=== PATIENT | female | born 1935 | race Caucasian/White ===

== ENCOUNTER 2017-03-13 22:25 | Emergency (ER) | payer OTHER ==
[~2017-03-13] VITALS: Ht 165.1 cm; Wt 60.5 kg
[~2017-03-13 22:25] MED LIST: CALCTAB66 PO; HYDR50TA3 PO; LOSA1TAB38 PO; LPR25 PO; MULTTAB PO; POTA-327 PO; PRM/3 PO
[2017-03-13 22:30] VITALS: TEMP 36.8; Ht 165.1 cm; Wt 60.5 kg
[2017-03-13] MEDS ORDERED: ONDANSETRON INJ 2 MG/ML 2 ML VIAL IV STA (23:05)
[2017-03-13] MEDS ORDERED: SODIUM CHLORIDE 0.9% 500ML 500 ML IV STA (23:05)
[2017-03-13] MEDS ORDERED: DIAZEPAM INJ 5 MG/ML 2 ML CARP IV STA (23:05)
[2017-03-13] MEDS ORDERED: MECLIZINE HCL 25 MG TAB PO STA (23:05)
[2017-03-13] MEDS ORDERED: SODIUM CHLORIDE 0.9% 1000ML 1,000 ML IV SCH (23:05)
--- NOTE | 2017-03-13 23:10 | EMERGENCY ROOM VISIT NOTE ---
History Report prepared by Sima: Bartolo Cornelius Under the Supervision of: Dr. Magdy Alex M.D. First contact with patient: 22:54 Chief Complaint: DIZZY Stated Complaint: DIZZY SPELLS;SICK IN STOMACH History of Present Illness The patient is an 82 year old female who presents to the Emergency Room with complaints of persistent dizziness that started this morning. The patient notes that she woke up with the discomfort around 4 AM. The patient notes the discomfort is worse when she stands up and lays flat. She describes the discomfort as feeling like the room is spinning when she is laying down and like she is off-balance and lightheaded when she stands up. The patient notes that if she stays still, the room spinning gradually goes away. The patient also had two episodes of vomiting. She denies having any history of this sensation before today. Source of History: patient Onset: this morning Position: head Timing: other (persistent) Modifying Factors (Worsening): rest (lays down ), movement (stands up ) Associated Symptoms: + vomiting Note: Other associated symptoms: lightheaded Review of Systems See HPI for pertinent positives & negatives. A total of 10 systems reviewed and were otherwise negative. Past Medical & Surgical Medical Problems: (1) Hypertension (2) Skin problem Family History FH: cancer FH: hypertension FH: lung disease Heart disease Kidney stone Social History Smoking Status: Never Smoker Housing Status: lives alone Occupation Status: retired Current/Historical Medications Scheduled Amoxicillin (Amoxil), 500 MG PO TID Calcium Carbonate-Vitamin D (Calcium 500/Vitamin D), 1 TAB PO DAILY Hydrochlorothiazide (Hctz), 50 MG PO QAM Losartan Potassium (Cozaar), 100 MG PO DAILY Metoprolol Tartrate (Lopressor), 25 MG PO BID Multivitamins/Minerals (Mvi With Minerals), 1 TAB PO DAILY Potassium Chloride (Potassium Chloride Er), 10 MEQ PO BID Scheduled PRN Meclizine Hcl (Meclizine Hcl), 1 TAB PO TID PRN for Dizziness or Vertigo Allergies Coded Allergies: Atenolol (Verified Allergy, Unknown, UNKNOWN, 03/13/17) Cephalosporins (Verified Allergy, Unknown, UNKNOWN, 03/13/17) Uncoded Allergies: CALCIUM CANNEL BLOCKERS (Allergy, Severe, ARMS & LEGS GO NUMB, 05/29/13) Physical Exam Vital Signs Date Time Temp Pulse Resp B/P Pulse Ox O2 Delivery O2 Flow Rate FiO2 03/14/17 00:58 85 18 156/81 97 03/13/17 23:53 84 18 159/77 95 Room Air 03/13/17 23:25 98 Room Air 03/13/17 22:55 82 20 158/71 98 Room Air 03/13/17 22:41 82 03/13/17 22:30 36.8 90 20 189/84 97 Room Air Physical Exam GENERAL: Patient is a healthy-appearing well-nourished HEAD: Normocephalic atraumatic EYES: Ocular movements intact pupils equal and react to light OROPHARYNX mucous membranes are moist no exudates present no erythema or edema present NECK: Supple no nuchal rigidity CHEST: Good equal expansion LUNGS: Clear and equal to auscultation CARDIAC: Normal S1 and S2 ABDOMEN: Soft nontender no guarding BACK: No CVA tenderness EXTREMITIES: No pain upon palpation normal muscle strength in all groups no clubbing cyanosis or edema NEURO: Patient is following commands is answering questions appropriately. Alert and oriented x3 Cranial Nerves 2-12 grossly intact. Unable to tolerate Nishant Hallpike Maneuver. Medical Decision & Procedures ER Provider Diagnostic Interpretation: Radiology results as stated below per my review and radiologist interpretation: CT HEAD: No intracranial hemorrhage or acute cortical infarct. Involutional changes and small vessel disease. One View Chest X-Ray was interpreted by me: No evidence of pneumonia, congestion, or pneumothorax. Laboratory Results 03/13/17 23:07 Red Blood Count 4.54, Mean Corpuscular Volume 80.6, Mean Corpuscular Hemoglobin 29.7, Mean Corpuscular Hemoglobin Concent 36.9, Mean Platelet Volume 9.0, Neutrophils (%) (Auto) 71.2, Lymphocytes (%) (Auto) 18.3, Monocytes (%) (Auto) 8.6, Eosinophils (%) (Auto) 1.3, Basophils (%) (Auto) 0.3, Neutrophils # (Auto) 7.42, Lymphocytes # (Auto) 1.90, Monocytes # (Auto) 0.89, Eosinophils # (Auto) 0.13, Basophils # (Auto) 0.03 03/13/17 23:07 Test 03/13/17 23:07 03/13/17 23:16 03/13/17 23:25 03/14/17 00:44 White Blood Count 10.40 K/uL (4.8-10.8) Red Blood Count 4.54 M/uL (4.2-5.4) Hemoglobin 13.5 g/dL (12.0-16.0) Hematocrit 36.6 % (37-47) Mean Corpuscular Volume 80.6 fL (80-100) Mean Corpuscular Hemoglobin 29.7 pg (25-34) Mean Corpuscular Hemoglobin Concent 36.9 g/dl (32-36) Platelet Count 315 K/uL (130-400) Mean Platelet Volume 9.0 fL (7.4-10.4) Neutrophils (%) (Auto) 71.2 % Lymphocytes (%) (Auto) 18.3 % Monocytes (%) (Auto) 8.6 % Eosinophils (%) (Auto) 1.3 % Basophils (%) (Auto) 0.3 % Neutrophils # (Auto) 7.42 K/uL (1.4-6.5) Lymphocytes # (Auto) 1.90 K/uL (1.2-3.4) Monocytes # (Auto) 0.89 K/uL (0.11-0.59) Eosinophils # (Auto) 0.13 K/uL (0-0.5) Basophils # (Auto) 0.03 K/uL (0-0.2) RDW Standard Deviation 39.7 fL (36.4-46.3) RDW Coefficient of Variation 13.4 % (11.5-14.5) Immature Granulocyte % (Auto) 0.3 % Immature Granulocyte # (Auto) 0.03 K/uL (0.00-0.02) Prothrombin Time 10.3 SECONDS (9.0-12.0) Prothromb Time International Ratio 1.0 (0.9-1.1) Activated Partial Thromboplast Time 24.3 SECONDS (21.0-31.0) Partial Thromboplastin Ratio 0.9 Anion Gap 14.0 mmol/L (3-11) Est Creatinine Clear Calc Drug Dose 34.3 ml/min Estimated GFR () 53.4 Estimated GFR (Non- 46.1 BUN/Creatinine Ratio 14.0 (10-20) Calcium Level 9.7 mg/dl (8.5-10.1) Total Creatine Kinase 151 U/L (26-192) Creatine Kinase MB 1.2 ng/ml (0.5-3.6) Creatine Kinase MB Ratio 0.8 (0-3.0) Troponin I < 0.015 ng/ml (0-0.045) Bedside Glucose 156 mg/dl (70-90) Bedside Prothrombin Time INR 0.9 (0.9-1.1) Urine Color YELLOW Urine Appearance TURBID (CLEAR) Urine pH 7.0 (4.5-7.5) Urine Specific [place] 1.013 (1.000-1.030) Urine Protein NEG (NEG) Urine Glucose (UA) NEG (NEG) Urine Ketones TRACE (NEG) Urine Occult Blood 1+ (NEG) Urine Nitrite NEG (NEG) Urine Bilirubin NEG (NEG) Urine Urobilinogen NEG (NEG) Urine Leukocyte Esterase LARGE (NEG) Urine WBC (Auto) >30 /hpf (0-5) Urine RBC (Auto) 5-10 /hpf (0-4) Urine Hyaline Casts (Auto) 5-10 /lpf (0-5) Urine Epithelial Cells (Auto) >30 /lpf (0-5) Urine Bacteria (Auto) 4+ (NEG) Labs reviewed by ED physician. Medications Administered Medications (Trade) Dose Ordered Sig/Heather Route Start Time Stop Time Status Last Admin Dose Admin Meclizine HCl (Antivert Tab) 25 mg NOW STAT PO 03/13/17 23:05 03/13/17 23:08 DC 03/13/17 23:47 25 MG Diazepam (Valium Inj) 2.5 mg NOW STAT IV 03/13/17 23:05 03/13/17 23:08 DC 03/13/17 23:47 2.5 MG Ondansetron HCl 4 mg 4 mg NOW STAT IV 03/13/17 23:05 03/13/17 23:08 DC 03/13/17 23:47 4 MG Sodium Chloride (Nss 500ml) 500 ml @ 999 mls/hr Q31M STAT IV 03/13/17 23:05 03/13/17 23:35 DC 03/13/17 23:47 999 MLS/HR Potassium Chloride (Gemini Ciel Elix) 40 meq NOW STAT PO 03/13/17 23:46 03/13/17 23:47 DC 03/14/17 00:00 40 MEQ Amoxicillin (Amoxil Cap) 500 mg NOW STAT PO 03/14/17 00:44 4/18/17 00:45 DC 03/14/17 00:55 500 MG Sodium Chloride ([place] Nasal Hiko) 2 sprays NOW STAT NA 03/14/17 00:44 03/14/17 00:45 DC 03/14/17 00:55 2 SPRAYS ECG Indication: other Rate (beats per minute): 82 Rhythm: normal sinus Findings: no acute ischemic change, no ectopy ED Course 2253: Past medical records reviewed. The patient was evaluated in room C10. A complete history and physical examination was performed. 2305: Ordered NSS 500 ml @ 999 mls/hr IV, Zofran Inj 4 mg IV, Valium Inj 2.5 mg IV, Antivert Tab 25 mg PO, NSS 1000 ml @ 50 mls/hr IV. 2346: Ordered Potassium Chloride 40 meq PO. 0023: At this time, I reevaluated the patient and she was feeling better. She did a walking trial that went well. 0044: Ordered Sodium Chloride 2 sprays NA, Amoxicillin 500 mg PO. 0052: Upon reexamination the patient is resting comfortably. I discussed results and treatment plan with the patient. She verbalizes agreement and understanding. The patient is ready for discharge. Medical Decision Differential diagnosis: Etiologies such as benign positional vertigo, dehydration, hypovolemia, anemia, tumor, infection, hypoglycemia, electrolyte abnormalities, cardiac sources, intracerebral event, toxicologic, neurologic, as well as others were entertained. This is an 82-year-old female who presents emergency department complaining of dizziness whenever she moves her head lays backwards or sits up. The dizziness fatigues with time. The dizziness started approximately 4 AM this morning. As his symptoms have been ongoing for this long I would expect a stroke to show up on CAT scan. As such the patient's CAT scan is normal. The patient was given Valium as well as meclizine and Zofran in the emergency department repeat examination revealed much improvement the patient's symptoms. The patient was able to turn her head without any symptoms based on these issues I believe the patient can be safely discharged home. She was ambulate a by nursing staff prior to leaving. The patient has been having sinusitis-like symptoms as well therefore she was placed on amoxicillin and given [place] nasal spray. I encouraged follow-up with ear nose and throat. Impression Primary Impression: BPV (benign positional vertigo) Additional Impression: Sinusitis Scribe Attestation The scribe's documentation has been prepared under my direction and personally reviewed by me in its entirety. I confirm that the note above accurately reflects all work, treatment, procedures, and medical decision making performed by me. Departure Information Dispostion Home / Self-Care Prescriptions Amoxicillin (AMOXIL) 500 Mg Cap 500 MG PO TID for 10 Days, #30 CAP Prov: Magdy Alex MD 03/14/17 Meclizine Hcl (MECLIZINE HCL) 25 Mg Tab 1 TAB PO TID Y for Dizziness or Vertigo for 10 Days, #30 TAB Prov: Magdy Alex MD 03/14/17 Referrals Magdy Masterson M.D. (PCP) Forms HOME CARE DOCUMENTATION FORM, IMPORTANT VISIT INFORMATION Patient Instructions ED BPV Vertigo, ED Sinusitis Abx Tx, My [facility] Additional Instructions Follow up with DR Martin's office You have been examined and treated today on an emergency basis only. This is not a substitute for, or an effort to provide, complete comprehensive medical care. It is impossible to recognize and treat all injuries or illnesses in a single emergency department visit. It is therefore important that you follow up closely with Dr Fritz. Call as soon as possible for an appointment. Thank you for your time and consideration. I look forward to speaking with you again soon. Please don't hesitate to call us if you have any questions. Problem Qualifiers Primary Impression: BPV (benign positional vertigo) Laterality: unspecified laterality Qualified Codes: H81.10 - Benign paroxysmal vertigo, unspecified ear Additional Impression: Sinusitis Sinusitis location: frontal Chronicity: acute Recurrence: not specified as recurrent Qualified Codes: J01.10 - Acute frontal sinusitis, unspecified
[2017-03-13 23:19] LABS: BASO % 0.3 %; BASO ABS # 0.03 K/uL (0-0.2); COMPLETE YES; EOS % 1.3 %; HEMATOCRIT 36.6 % (37-47); IG% 0.3 %; LYMPH % 18.3 %; MEAN CELL VOLUME 80.6 fL (80-100); MEAN CORPUSCULAR HEMOGLOBIN 29.7 pg (25-34); MEAN CORPUSCULAR HGB CONC 36.9 g/dl (32-36); MONO % 8.6 %; NEUT % 71.2 %; PLATELET COUNT 315 K/uL (130-400); RED BLOOD COUNT 4.54 M/uL (4.2-5.4)
[2017-03-13 23:25] VITALS: O2SAT 98
[2017-03-13 23:30] LABS: PARTIAL THROMBOPLASTIN RATIO 0.9; PROTHROMBIN TIME (PATIENT) 10.3 SECONDS (9.0-12.0)
[2017-03-13] MEDS ORDERED: POTA1CAP2 PO (23:31)
[2017-03-13 23:35] LABS: BLOOD UREA NITROGEN 15 mg/dl (7-18); CARBON DIOXIDE 23 mmol/L (21-32); CHLORIDE 97 mmol/L (98-107); GLUCOSE 135 mg/dl (70-99); POTASSIUM 3.3 mmol/L (3.5-5.1); SODIUM 134 mmol/L (136-145)
[2017-03-13 23:40] LABS: CKMB/CK RATIO 0.8 (0-3.0)
[2017-03-13 23:46] LABS: CALCIUM 9.7 mg/dl (8.5-10.1)
[2017-03-13] MEDS ORDERED: POTASSIUM CHLORIDE 20 MEQ/15 ML UDC PO STA (23:46)
[2017-03-14] MEDS ORDERED: AMOXICILLIN 250 MG CAP PO STA (00:44)
[2017-03-14] MEDS ORDERED: SODIUM CHLORIDE 0.65% NA SOLN 45 ML (OCEAN) STA (00:44)
[2017-03-14] MEDS ORDERED: MECL1TAB42 PO (00:50)
[2017-03-14] MEDS ORDERED: AMOX500C3 PO (00:50)
[2017-03-14 00:56] LABS: URINE APPEARANCE TURBID (CLEAR); URINE BILIRUBIN NEG (NEG); URINE COLOR YELLOW; URINE EPITHELIAL CELL AUTO >30 /lpf (0-5); URINE NITRITE NEG (NEG); URINE SPECIFIC GRAVITY 1.013 (1.000-1.030); UROBILINOGEN NEG (NEG); ZZUR CULT IF INDIC CLEAN CATCH YES
[2017-03-14 00:58] VITALS: BP 156/81; PULSE 85; O2SAT 97
[2017-03-14 01:01] LABS: MANUAL MICROSCOPIC REQUIRED? NO; REVIEW REQ? NO
[2017-03-14 01:11] LABS: BENZODIAZEPINE, URINE NEG (NEG); COCAINE,URINE NEG (NEG); PHENCYCLIDINE, URINE NEG (NEG)
--- NOTE | 2017-03-14 06:43 | DIAGNOSTIC IMAGING REPORT ---
CHEST ONE VIEW PORTABLE CLINICAL HISTORY: Stroke mental status change COMPARISON STUDY: 05/29/2013 FINDINGS: The bones soft tissues and hemidiaphragms are normal. The cardiomediastinal silhouette is normal. The lungs are clear. The pulmonary vasculature is normal. IMPRESSION: Negative chest. Electronically signed by: Randall Encarnacion M.D. 03/14/2017 6:41 AM Dictated Date/Time: 03/14/2017 6:41 AM
--- NOTE | 2017-03-14 07:13 | DIAGNOSTIC IMAGING REPORT ---
HEAD CT NONCONTRAST CT DOSE: 537.48 mGy.cm HISTORY: Dizziness. Stroke TECHNIQUE: Multiaxial CT images of the head were performed without the use of intravenous contrast. Automated exposure control was utilized for this study. Comparison: None. Findings: The paranasal sinuses and mastoid air cells are clear. The calvarium and skull base are intact. There is no mass, hematoma, midline shift, acute infarct. White matter hypodensity is nonspecific but suggestive of microvascular ischemic change. The ventricles and sulci demonstrate mild age-related involutional changes. Impression: No acute intracranial abnormality. Atrophy and microvascular ischemic changes. Electronically signed by: José Murray M.D. 03/14/2017 7:11 AM Dictated Date/Time: 03/14/2017 7:09 AM
== END 2017-03-14 00:59 | disposition home or self-care (01) ==
LOC: C.EDB 22:27 → C.EDC 03-14 00:59
DX: H81.10 Benign paroxysmal vertigo, unspecified ear (principal); J01.10 Acute frontal sinusitis, unspecified; I10 Essential (primary) hypertension; Z80.9 Family history of malignant neoplasm, unspecified; Z82.49 Family history of ischemic heart disease and other diseases of the circulatory system; Z79.899 Other long term (current) drug therapy

== ENCOUNTER 2017-08-13 08:07 | Observation (INO) | payer OTHER ==
[~2017-08-13] VITALS: Ht 165.1 cm; Wt 64.0 kg
[~2017-08-13 08:07] MED LIST changes: -POTA-327 PO; +POTA1CAP2 PO; -PRM/3 PO
[2017-08-13] MEDS ORDERED: SODIUM CHLORIDE 0.9% 1000ML 1,000 ML IV STA ×2 (08:36→10:07)
--- NOTE | 2017-08-13 08:53 | EMERGENCY ROOM VISIT NOTE ---
History Report prepared by Sima: Sue Coto Under the Supervision of: Dr. Roberto Valdez M.D. First contact with patient: 08:27 Chief Complaint: RECTAL BLEEDING Stated Complaint: RECTAL BLEEDING History of Present Illness The patient is a 82 year old female who presents to the Emergency Room with complaints of intermittent rectal bleeding beginning 1 week ago. The patient states that she had an episode of rectal bleeding 1 week ago that consisted of both stool and blood. She reports that she has had multiple normal bowel movements throughout this week but had another episode of blood with her stool this morning. The patient complains of lightheadedness beginning last night and an episode of left sided chest pain this morning. She denies any fever, chills, cough, congestion, nausea, vomiting, abdominal pain, and shortness of breath. She states that she is not on any blood thinners. She notes a history of diverticulitis and diverticulosis. The patient reports that the blood was bright red. Source of History: patient Onset: 1 week ago Position: other (rectal) Quality: other (bright red bleeding) Timing: intermittent Associated Symptoms: + chest pain, No fevers, No chills, No cough, No SOB, No nausea, No vomiting, No abdominal pain Note: The patient complains of lightheadedness beginning last night. She denies any congestion, Review of Systems See HPI for pertinent positives and negatives. A total of ten systems were reviewed and were otherwise negative. Past Medical & Surgical Medical Problems: (1) Hypertension (2) Rectal bleeding (3) Skin problem Surgical Problems: (1) S/P RHEA-BSO Family History FH: cancer FH: hypertension FH: lung disease Heart disease Kidney stone Social History Smoking Status: Never Smoker Housing Status: lives alone Occupation Status: retired Current/Historical Medications Scheduled Fexofenadine Hcl (Mel Allergy), 1 TAB PO DAILY Hydrochlorothiazide (Hctz), 50 MG PO QAM Losartan Potassium (Cozaar), 100 MG PO DAILY Metoprolol Tartrate (Lopressor), 25 MG PO BID Potassium Chloride (Potassium Chloride Er), 10 MEQ PO BID Allergies Coded Allergies: Atenolol (Verified Allergy, Unknown, UNKNOWN, 08/13/17) Cephalosporins (Verified Allergy, Unknown, UNKNOWN, 08/13/17) Uncoded Allergies: CALCIUM CANNEL BLOCKERS (Allergy, Severe, ARMS & LEGS GO NUMB, 05/29/13) Physical Exam Vital Signs Date Time Temp Pulse Resp B/P (MAP) Pulse Ox O2 Delivery O2 Flow Rate FiO2 08/13/17 12:11 84 16 163/98 94 Room Air 08/13/17 11:06 81 16 159/77 96 Room Air 08/13/17 10:24 77 16 179/84 98 Room Air 08/13/17 09:46 79 17 149/85 97 Room Air 08/13/17 08:58 97 Room Air 08/13/17 08:50 88 08/13/17 08:11 36.8 93 18 157/84 95 Room Air Physical Exam GENERAL: Awake, alert, well-appearing, in no distress. Appears slightly pale. HENT: Normocephalic, atraumatic. Dry mucous membranes. EYES: Normal conjunctiva. Sclera non-icteric. NECK: Supple. No nuchal rigidity. FROM. No JVD. RESPIRATORY: Clear to auscultation. CARDIAC: Regular rate, normal rhythm. Extremities warm and well perfused. Pulses equal. 3/6 systolic murmur. ABDOMEN: Soft, non-distended. Mild LLQ tenderness to palpation. No rebound or guarding. No masses. RECTAL: Deferred. MUSCULOSKELETAL: Chest examination reveals no tenderness. The back is symmetrical on inspection without obvious abnormality. There is no CVA tenderness to palpation. No joint edema. LOWER EXTREMITIES: Calves are equal size bilaterally and non-tender. No edema. No discoloration. NEURO: Normal sensorium. No sensory or motor deficits noted. SKIN: No rash or jaundice noted. RECTAL: Dried red blood around the anus, no active bleeding from the anus, she does have a granulomatous polyp at the opening of the anus that is tender to palpation. She had brown stool that was strongly guaiac positive. Medical Decision & Procedures ER Provider Diagnostic Interpretation: Radiology results as stated below per my review and radiologist interpretation: CHEST ONE VIEW PORTABLE FINDINGS: Atherosclerosis of the aortic arch. Cardiac silhouette normal in size. Prominence and crowding of vasculature in the lung bases likely from mildly low lung volumes. Lungs and pleural spaces clear. Degenerative changes of the thoracic spine. Upper abdomen normal. IMPRESSION: 1. No acute cardiopulmonary disease. Electronically signed by: Ismael Haas M.D. 08/13/2017 9:05 AM Dictated Date/Time: 08/13/2017 9:03 AM ABD/PELVIS IV CONTRAST ONLY FINDINGS: Turbine Room Attendant topogram: Unremarkable. Lung bases: Minimal dependent changes likely atelectasis. Solid 3 mm pulmonary nodule in the right middle lobe (series 3 image 32). Mosaic attenuation at the lung bases could suggest small airways disease. Mild multichamber enlargement of the heart. Mitral annular, aortic valve, and coronary artery calcification. No pericardial or pleural effusion. Liver: Normal morphology. Well-defined hypodensity at the hepatic dome likely hepatic cyst. Additional smaller well-circumscribed hypodensity in the left hepatic lobe anteriorly likely also cyst or hamartoma. No suspicious lesion. Patent hepatic vasculature. Biliary: No intrahepatic or extrahepatic biliary ductal dilatation. Normal gallbladder. Pancreas: Prominent duodenal diverticulum at the pancreatic head. Moderate pancreatic parenchymal atrophy. Spleen: Normal. Adrenal glands: Normal. Kidneys and ureters: Dilation of the bilateral renal collecting systems and mild dilation of the ureters. Bladder: The bladder trigone appears herniated inferiorly with a cystocele present. This involves the bladder neck/trigone likely with resultant partial obstruction of the ureterovesical junctions. Pelvic organs: Uterus surgically absent. Bowel: Diverticulosis of the descending and sigmoid colon. No diverticulitis. Normal appendix. No bowel obstruction. Small hiatal hernia. Prominent duodenal diverticulum without associated inflammatory change at the level of the pancreatic head. Peritoneal cavity: No free fluid or intraperitoneal gas. Vasculature: Atherosclerosis of the normal caliber abdominal aorta. IVC patent. Lymph nodes: No enlarged lymph nodes in the abdomen or pelvis. Abdominal wall: Normal. Musculoskeletal: Degenerative changes of the pubic symphysis and lumbar spine. Mild osteopenia. IMPRESSION: 1. Diverticulosis. No evidence of diverticulitis. 2. Dilation of the bilateral renal collecting systems and ureters could suggest hydroureteronephrosis. 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 Correlate with gynecologic examination. Electronically signed by: Ismael Haas M.D. 08/13/2017 10:28 AM Dictated Date/Time: 08/13/2017 10:20 AM Laboratory Results 08/13/17 08:49 Red Blood Count 4.39, Mean Corpuscular Volume 82.0, Mean Corpuscular Hemoglobin 29.8, Mean Corpuscular Hemoglobin Concent 36.4, Mean Platelet Volume 8.7, Neutrophils (%) (Auto) 66.2, Lymphocytes (%) (Auto) 20.8, Monocytes (%) (Auto) 9.5, Eosinophils (%) (Auto) 2.6, Basophils (%) (Auto) 0.6, Neutrophils # (Auto) 4.81, Lymphocytes # (Auto) 1.51, Monocytes # (Auto) 0.69, Eosinophils # (Auto) 0.19, Basophils # (Auto) 0.04 08/13/17 08:49 Test 08/13/17 08:48 08/13/17 08:49 Urine Color YELLOW Urine Appearance TURBID (CLEAR) Urine pH 5.5 (4.5-7.5) Urine Specific Gordon 1.010 (1.000-1.030) Urine Protein NEG (NEG) Urine Glucose (UA) NEG (NEG) Urine Ketones NEG (NEG) Urine Occult Blood 3+ (NEG) Urine Nitrite NEG (NEG) Urine Bilirubin NEG (NEG) Urine Urobilinogen NEG (NEG) Urine Leukocyte Esterase LARGE (NEG) Urine WBC (Auto) >30 /hpf (0-5) Urine RBC (Auto) 0-4 /hpf (0-4) Urine Hyaline Casts (Auto) 1-5 /lpf (0-5) Urine Epithelial Cells (Auto) >30 /lpf (0-5) Urine Bacteria (Auto) 1+ (NEG) White Blood Count 7.26 K/uL (4.8-10.8) Red Blood Count 4.39 M/uL (4.2-5.4) Hemoglobin 13.1 g/dL (12.0-16.0) Hematocrit 36.0 % (37-47) Mean Corpuscular Volume 82.0 fL (80-100) Mean Corpuscular Hemoglobin 29.8 pg (25-34) Mean Corpuscular Hemoglobin Concent 36.4 g/dl (32-36) Platelet Count 325 K/uL (130-400) Mean Platelet Volume 8.7 fL (7.4-10.4) Neutrophils (%) (Auto) 66.2 % Lymphocytes (%) (Auto) 20.8 % Monocytes (%) (Auto) 9.5 % Eosinophils (%) (Auto) 2.6 % Basophils (%) (Auto) 0.6 % Neutrophils # (Auto) 4.81 K/uL (1.4-6.5) Lymphocytes # (Auto) 1.51 K/uL (1.2-3.4) Monocytes # (Auto) 0.69 K/uL (0.11-0.59) Eosinophils # (Auto) 0.19 K/uL (0-0.5) Basophils # (Auto) 0.04 K/uL (0-0.2) RDW Standard Deviation 39.1 fL (36.4-46.3) RDW Coefficient of Variation 13.0 % (11.5-14.5) Immature Granulocyte % (Auto) 0.3 % Immature Granulocyte # (Auto) 0.02 K/uL (0.00-0.02) Prothrombin Time 10.0 SECONDS (9.0-12.0) Prothromb Time International Ratio 0.9 (0.9-1.1) Activated Partial Thromboplast Time 24.6 SECONDS (21.0-31.0) Partial Thromboplastin Ratio 0.9 Anion Gap 8.0 mmol/L (3-11) Est Creatinine Clear Calc Drug Dose 39.7 ml/min Estimated GFR () 63.7 Estimated GFR (Non- 55.0 BUN/Creatinine Ratio 11.3 (10-20) Lactic Acid Level 3.2 mmol/L (0.4-2.0) Calcium Level 9.1 mg/dl (8.5-10.1) Total Bilirubin 0.4 mg/dl (0.2-1) Direct Bilirubin < 0.1 mg/dl (0-0.2) Aspartate Amino Transf (AST/SGOT) 11 U/L (15-37) Alanine Aminotransferase (ALT/SGPT) 14 U/L (12-78) Alkaline Phosphatase 88 U/L (45-117) Troponin I < 0.015 ng/ml (0-0.045) Total Protein 7.4 gm/dl (6.4-8.2) Albumin 3.9 gm/dl (3.4-5.0) Lipase 248 U/L (73-393) Laboratory results reviewed by me Medications Administered Medications (Trade) Dose Ordered Sig/Heather Route Start Time Stop Time Status Last Admin Dose Admin Sodium Chloride 1,000 ml @ 999 mls/hr Q1H1M STAT IV 08/13/17 08:36 08/13/17 09:36 DC 08/13/17 08:58 999 MLS/HR Sodium Chloride 1,000 ml @ 999 mls/hr Q1H1M STAT IV 08/13/17 10:07 08/13/17 11:07 DC 08/13/17 10:23 999 MLS/HR Levofloxacin (Levaquin / D5W) 750 mg NOW STAT IV 08/13/17 10:52 08/13/17 10:56 DC 08/13/17 11:05 750 MG ECG Indication: other (lightheadedness) Rate (beats per minute): 83 Rhythm: normal sinus Findings: no acute ischemic change, other (normal axis) ED Course 0827: The patient was evaluated in room A4. A complete history and physical exam was performed. 0856: Sodium Chloride 1000 ml @ 999 mls/hr IV. 1007: The patients lactic acid is 3.2. 1007: Sodium Chloride 1000 ml @ 999 mls/hr IV. 1052: Levofloxacin 750mg IV. 1108: I reevaluated and updated the patient. 1119: Discussed the patient's case with Dr. Snowden of [facility]. The patient will be evaluated for further treatment and disposition. 1125: Upon reexamination, the patient was doing well. I discussed the test results and treatment plan with her. The patient will be evaluated for further management. Medical Decision I reviewed the patient's past medical history, medications, and the nursing notes as described above. Differential diagnosis includes diverticulosis, diverticulitis, malignancy, bowel obstruction, less likely peptic ulcer, gastroenteritis, hemorrhagic gastroenteritis, dehydration, electrolyte abnormalities. Patient is a 82-year-old woman with a past medical history of rectal bleeding remotely presents to the emergency department with bright red blood per rectum per history of present illness. Arrival the patient is in no acute distress, afebrile with stable vital signs. Has mild left lower quadrant tenderness to palpation. Rectal exam has dried blood around the anus but no active rectal bleeding. Had brown stool that was strongly guaiac positive. Also has a granulomatous polyp protruding from the anus that was only tender to palpation. HCT 36 similar to recent. WBC within normal limits. Labs largely unremarkable however did have a lactate elevated to 3.8 in the setting of a clinically dry appearance but otherwise nontoxic. Patient given IV fluid hydration. UA grossly positive. CT of the abdomen and pelvis shows ?mild bilateral hydroureter nephrosis with findings consistent with bladder outlet obstruction from likely cystocele. However, creatinine within normal limits. Patient treated with levofloxacin given a documented history of cephalosporin allergy. Otherwise concerning the patient is nontoxic and hemodynamically stable I do not believe that the patient's lactate is c/w severe sepsis, rather likely related to dehydration and therefore no indication for broad-spectrum antibiotics at this time. Case was discussed with medicine hospitalist, Dr. Snowden, who will admit the patient for further management. Medication Reconcilliation Current Medication List: was personally reviewed by me Blood Pressure Screening Patient's blood pressure: Elevated blood pressure Blood pressure disposition: Elevated BP felt to be situational Consults Time Called: 1050 Consulting Physician: Dr. Sp Guajardo Returned Call: [phone] Discussed the patient's case with Dr. Snowden of [facility]. The patient will be evaluated for further treatment and disposition. Impression Primary Impression: Lower GI bleed Additional Impression: UTI (urinary tract infection) Scribe Attestation The scribe's documentation has been prepared under my direction and personally reviewed by me in its entirety. I confirm that the note above accurately reflects all work, treatment, procedures, and medical decision making performed by me. Departure Information Dispostion Being Evaluated By Hospitalist Referrals Russ Angel M.D. (PCP) Patient Instructions My [facility] Problem Qualifiers
[2017-08-13] MEDS ORDERED: OPTIRAY 320 IV PRN (09:00)
--- NOTE | 2017-08-13 09:06 | DIAGNOSTIC IMAGING REPORT ---
CHEST ONE VIEW PORTABLE CLINICAL HISTORY: 82 years-old Female presenting with EVALUATE GI BLEED. TECHNIQUE: Portable upright AP view of the chest was obtained. COMPARISON: 03/13/2017. FINDINGS: Atherosclerosis of the aortic arch. Cardiac silhouette normal in size. Prominence and crowding of vasculature in the lung bases likely from mildly low lung volumes. Lungs and pleural spaces clear. Degenerative changes of the thoracic spine. Upper abdomen normal. IMPRESSION: 1. No acute cardiopulmonary disease. Electronically signed by: Ismael Haas M.D. 08/13/2017 9:05 AM Dictated Date/Time: 08/13/2017 9:03 AM
[2017-08-13 09:19] LABS: BASO % 0.6 %; BASO ABS # 0.04 K/uL (0-0.2); COMPLETE YES; EOS % 2.6 %; IG% 0.3 %; LYMPH % 20.8 %; LYMPH ABS # 1.51 K/uL (1.2-3.4); MEAN CORPUSCULAR HEMOGLOBIN 29.8 pg (25-34); MEAN CORPUSCULAR HGB CONC 36.4 g/dl (32-36); MEAN PLATELET VOLUME 8.7 fL (7.4-10.4); MONO % 9.5 %; NEUT % 66.2 %; PLATELET COUNT 325 K/uL (130-400); RED BLOOD COUNT 4.39 M/uL (4.2-5.4); WHITE BLOOD COUNT 7.26 K/uL (4.8-10.8)
[2017-08-13 09:30] LABS: URINE APPEARANCE TURBID (CLEAR); URINE BILIRUBIN NEG (NEG); URINE COLOR YELLOW; URINE EPITHELIAL CELL AUTO >30 /lpf (0-5); URINE NITRITE NEG (NEG); URINE PH 5.5 (4.5-7.5); UROBILINOGEN NEG (NEG)
[2017-08-13 09:32] LABS: INR 0.9 (0.9-1.1); PARTIAL THROMBOPLASTIN RATIO 0.9
[2017-08-13 09:35] LABS: MANUAL MICROSCOPIC REQUIRED? NO; REVIEW REQ? YES
[2017-08-13 09:36] LABS: ALT/SGPT 14 U/L (12-78); BLOOD UREA NITROGEN 11 mg/dl (7-18); BUN/CREATININE RATIO 11.3 (10-20); CALCIUM 9.1 mg/dl (8.5-10.1); CARBON DIOXIDE 26 mmol/L (21-32); CHLORIDE 98 mmol/L (98-107); CREATININE 0.95 mg/dl (0.60-1.20); GLUCOSE 121 mg/dl (70-99); POTASSIUM 3.7 mmol/L (3.5-5.1); SODIUM 132 mmol/L (136-145)
[2017-08-13 09:41] LABS: ALKALINE PHOSPHATASE 88 U/L (45-117); AST/SGOT 11 U/L (15-37)
--- NOTE | 2017-08-13 10:29 | DIAGNOSTIC IMAGING REPORT ---
ABD/PELVIS IV CONTRAST ONLY CLINICAL HISTORY: 82 years-old Female presenting with LLQ pain, BRBPR, history of diverticulosis. TECHNIQUE: Multidetector CT of the abdomen and pelvis was performed after the administration of intravenous contrast. IV contrast: 94 mL of Optiray 320. A dose lowering technique was used consistent with the principles of ALARA (as low as reasonably achievable). COMPARISON: None. CT DOSE (mGy.cm): The estimated cumulative dose is 354.42 mGy.cm. FINDINGS: Boot Repairer topogram: Unremarkable. Lung bases: Minimal dependent changes likely atelectasis. Solid 3 mm pulmonary nodule in the right middle lobe (series 3 image 32). Mosaic attenuation at the lung bases could suggest small airways disease. Mild multichamber enlargement of the heart. Mitral annular, aortic valve, and coronary artery calcification. No pericardial or pleural effusion. Liver: Normal morphology. Well-defined hypodensity at the hepatic dome likely hepatic cyst. Additional smaller well-circumscribed hypodensity in the left hepatic lobe anteriorly likely also cyst or hamartoma. No suspicious lesion. Patent hepatic vasculature. Biliary: No intrahepatic or extrahepatic biliary ductal dilatation. Normal gallbladder. Pancreas: Prominent duodenal diverticulum at the pancreatic head. Moderate pancreatic parenchymal atrophy. Spleen: Normal. Adrenal glands: Normal. Kidneys and ureters: Dilation of the bilateral renal collecting systems and mild dilation of the ureters. Bladder: The bladder trigone appears herniated inferiorly with a cystocele present. This involves the bladder neck/trigone likely with resultant partial obstruction of the ureterovesical junctions. Pelvic organs: Uterus surgically absent. Bowel: Diverticulosis of the descending and sigmoid colon. No diverticulitis. Normal appendix. No bowel obstruction. Small hiatal hernia. Prominent duodenal diverticulum without associated inflammatory change at the level of the pancreatic head. Peritoneal cavity: No free fluid or intraperitoneal gas. Vasculature: Atherosclerosis of the normal caliber abdominal aorta. IVC patent. Lymph nodes: No enlarged lymph nodes in the abdomen or pelvis. Abdominal wall: Normal. Musculoskeletal: Degenerative changes of the pubic symphysis and lumbar spine. Mild osteopenia. IMPRESSION: 1. Diverticulosis. No evidence of diverticulitis. 2. Dilation of the bilateral renal collecting systems and ureters could suggest hydroureteronephrosis. 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 Correlate with gynecologic examination. Electronically signed by: Ismael Haas M.D. 08/13/2017 10:28 AM Dictated Date/Time: 08/13/2017 10:20 AM
[2017-08-13] MEDS ORDERED: LEVAQUIN 750MG / 150ML D5W IV STA (10:52)
[2017-08-13] MEDS ORDERED: ONDANSETRON INJ 2 MG/ML 2 ML VIAL IV PRN (12:15)
[2017-08-13] MEDS ORDERED: ACETAMINOPHEN 325 MG TAB PO PRN (12:15)
[2017-08-13] MEDS ORDERED: FEXO1TAB49 PO (12:15)
[2017-08-13] MEDS ORDERED: IV FLUIDS COMPLETED PRN (12:45)
--- NOTE | 2017-08-13 12:48 | History and Physical ---
History & Physical Date & Time of Service: Aug 13, 2017 at 12:16 Chief Complaint: Rectal Bleeding Primary Care Physician: Rsus Angel M.D. History of Present Illness Source: patient, family, clinic records, hospital records 82 yo F with no h/o rectal bleeding presents to the ER this morning with one bowel movement that had bright red blood not mixed into the stool. She describes a similar episode one week ago that went away and was followed by normal daily bowel movements. She reports some positional lightheadedness, but this is chronic for her and with no changes this morning. She states "I'm always careful when I get up." She denies any nausea, abdominal pain or diarrhea. She also denies UTI symptoms including no flank pain, fevers, chills , dysuria, urinary urgency, urinary incontinence, or hematuria. She denies having issues with bladder prolapse in the past. She also reported some chest pain to the ER physician, which she didn't initially recall when I first asked about it. She states that she had two minutes of chest pain that was a twinge on the left lateral side of her breast and states that it was not concerning to her, she just didn't know what might have caused that. At baseline she is a very active, healthy 82 y/o who keeps up with her own household and likes to go shopping at the mall with her daughters who are present at bedside. She does not have to stop and rest ever when walking the mall and her daughters corroborate that she is very active. The patient denies any history of chest pain or shortness of breath in the past. Today's episode of pain was not associated with shortness of breath, nausea, lightheadedness, diaphoresis and the pain came on at rest, resolved spontaneously and did not radiate anywhere. She denies any recent infectious symptoms or illnesses, and denies any recent medication changes or antibiotic use. No colonoscopy was available on file. Past Medical/Surgical History Medical Problems: (1) Hypertension Status: Chronic Surgical Problems: (1) S/P RHEA-BSO Status: Chronic Family History FH: cancer FH: hypertension FH: lung disease Heart disease Kidney stone Social History Smoking Status: Never Smoker Smokeless Tobacco Use: No Alcohol Use: none Drug Use: none Marital Status: single Housing status: lives alone Occupational Status: retired Immunizations History of Influenza Vaccine: No History of Tetanus Vaccine?: Yes Tetanus Immunization Date: Nov 27, 2000 History of Pneumococcal: No History of Hepatitis B Vaccine: No Multi-Drug Resistant Organisms History of MDRO: No Allergies Coded Allergies: Atenolol (Verified Allergy, Unknown, UNKNOWN, 08/13/17) Cephalosporins (Verified Allergy, Unknown, UNKNOWN, 08/13/17) Uncoded Allergies: CALCIUM CANNEL BLOCKERS (Allergy, Severe, ARMS & LEGS GO NUMB, 05/29/13) Home Medications Scheduled Fexofenadine Hcl (Mel Allergy), 1 TAB PO DAILY Hydrochlorothiazide (Hctz), 50 MG PO QAM Losartan Potassium (Cozaar), 100 MG PO DAILY Metoprolol Tartrate (Lopressor), 25 MG PO BID Potassium Chloride (Potassium Chloride Er), 10 MEQ PO BID Review of Systems At least least ten symptoms were reviewed and negative except as indicated in HPI. Physical Exam Vital Signs Date Time Temp Pulse Resp B/P (MAP) Pulse Ox O2 Delivery O2 Flow Rate FiO2 08/13/17 12:11 84 16 163/98 94 Room Air 08/13/17 11:06 81 16 159/77 96 Room Air 08/13/17 10:24 77 16 179/84 98 Room Air 08/13/17 09:46 79 17 149/85 97 Room Air 08/13/17 08:58 97 Room Air 08/13/17 08:50 88 08/13/17 08:11 36.8 93 18 157/84 95 Room Air GEN: WNWD, in no acute distress, alert and appropriate HEENT: NC/AT, PERRL, normal sclerae, pharynx non-acute, no cervical LAD CARDIO: reg rate, S1/2 heard without m/g/r LUNGS: CTA bilaterally, no crackles, rales or wheezes, good diaphragmatic excursion ABD: soft, non-tender, non-distended, no rebound or guarding, +BS, no CVA tenderness RECTAL: deferred EXTREMITY: RP and DP palpable 2+ bilat, no LE swelling or edema, extremities are warm and well-perfused NEURO: CN 2-12 grossly intact, sensation intact throughout MUSC: 5/5 strength throughout, no gross focal deficits SKIN: warm and dry Diagnostics Laboratory Results 08/13/17 08:49 Red Blood Count 4.39, Mean Corpuscular Volume 82.0, Mean Corpuscular Hemoglobin 29.8, Mean Corpuscular Hemoglobin Concent 36.4, Mean Platelet Volume 8.7, Neutrophils (%) (Auto) 66.2, Lymphocytes (%) (Auto) 20.8, Monocytes (%) (Auto) 9.5, Eosinophils (%) (Auto) 2.6, Basophils (%) (Auto) 0.6, Neutrophils # (Auto) 4.81, Lymphocytes # (Auto) 1.51, Monocytes # (Auto) 0.69, Eosinophils # (Auto) 0.19, Basophils # (Auto) 0.04 08/13/17 08:49 Test 08/13/17 08:48 08/13/17 08:49 Urine Color YELLOW Urine Appearance TURBID (CLEAR) Urine pH 5.5 (4.5-7.5) Urine Specific [place] 1.010 (1.000-1.030) Urine Protein NEG (NEG) Urine Glucose (UA) NEG (NEG) Urine Ketones NEG (NEG) Urine Occult Blood 3+ (NEG) Urine Nitrite NEG (NEG) Urine Bilirubin NEG (NEG) Urine Urobilinogen NEG (NEG) Urine Leukocyte Esterase LARGE (NEG) Urine WBC (Auto) >30 /hpf (0-5) Urine RBC (Auto) 0-4 /hpf (0-4) Urine Hyaline Casts (Auto) 1-5 /lpf (0-5) Urine Epithelial Cells (Auto) >30 /lpf (0-5) Urine Bacteria (Auto) 1+ (NEG) White Blood Count 7.26 K/uL (4.8-10.8) Red Blood Count 4.39 M/uL (4.2-5.4) Hemoglobin 13.1 g/dL (12.0-16.0) Hematocrit 36.0 % (37-47) Mean Corpuscular Volume 82.0 fL (80-100) Mean Corpuscular Hemoglobin 29.8 pg (25-34) Mean Corpuscular Hemoglobin Concent 36.4 g/dl (32-36) Platelet Count 325 K/uL (130-400) Mean Platelet Volume 8.7 fL (7.4-10.4) Neutrophils (%) (Auto) 66.2 % Lymphocytes (%) (Auto) 20.8 % Monocytes (%) (Auto) 9.5 % Eosinophils (%) (Auto) 2.6 % Basophils (%) (Auto) 0.6 % Neutrophils # (Auto) 4.81 K/uL (1.4-6.5) Lymphocytes # (Auto) 1.51 K/uL (1.2-3.4) Monocytes # (Auto) 0.69 K/uL (0.11-0.59) Eosinophils # (Auto) 0.19 K/uL (0-0.5) Basophils # (Auto) 0.04 K/uL (0-0.2) RDW Standard Deviation 39.1 fL (36.4-46.3) RDW Coefficient of Variation 13.0 % (11.5-14.5) Immature Granulocyte % (Auto) 0.3 % Immature Granulocyte # (Auto) 0.02 K/uL (0.00-0.02) Prothrombin Time 10.0 SECONDS (9.0-12.0) Prothromb Time International Ratio 0.9 (0.9-1.1) Activated Partial Thromboplast Time 24.6 SECONDS (21.0-31.0) Partial Thromboplastin Ratio 0.9 Anion Gap 8.0 mmol/L (3-11) Est Creatinine Clear Calc Drug Dose 39.7 ml/min Estimated GFR () 63.7 Estimated GFR (Non- 55.0 BUN/Creatinine Ratio 11.3 (10-20) Lactic Acid Level 3.2 mmol/L (0.4-2.0) Calcium Level 9.1 mg/dl (8.5-10.1) Total Bilirubin 0.4 mg/dl (0.2-1) Direct Bilirubin < 0.1 mg/dl (0-0.2) Aspartate Amino Transf (AST/SGOT) 11 U/L (15-37) Alanine Aminotransferase (ALT/SGPT) 14 U/L (12-78) Alkaline Phosphatase 88 U/L (45-117) Troponin I < 0.015 ng/ml (0-0.045) Total Protein 7.4 gm/dl (6.4-8.2) Albumin 3.9 gm/dl (3.4-5.0) Lipase 248 U/L (73-393) Date/Time Source Procedure Growth Status 08/13/17 10:18 Blood Blood Culture Pending Received Results Past 24 Hours Test 08/13/17 08:48 08/13/17 08:49 Range/Units Urine Color YELLOW Urine Appearance TURBID CLEAR Urine pH 5.5 4.5-7.5 Urine Specific [place] 1.010 1.000-1.030 Urine Protein NEG NEG Urine Glucose (UA) NEG NEG Urine Ketones NEG NEG Urine Occult Blood 3+ NEG Urine Nitrite NEG NEG Urine Bilirubin NEG NEG Urine Urobilinogen NEG NEG Urine Leukocyte Esterase LARGE NEG Urine WBC (Auto) >30 0-5 /hpf Urine RBC (Auto) 0-4 0-4 /hpf Urine Hyaline Casts (Auto) 1-5 0-5 /lpf Urine Epithelial Cells (Auto) >30 0-5 /lpf Urine Bacteria (Auto) 1+ NEG White Blood Count 7.26 4.8-10.8 K/uL Red Blood Count 4.39 4.2-5.4 M/uL Hemoglobin 13.1 12.0-16.0 g/dL Hematocrit 36.0 37-47 % Mean Corpuscular Volume 82.0 80-100 fL Mean Corpuscular Hemoglobin 29.8 25-34 pg Mean Corpuscular Hemoglobin Concent 36.4 32-36 g/dl Platelet Count 325 130-400 K/uL Mean Platelet Volume 8.7 7.4-10.4 fL Neutrophils (%) (Auto) 66.2 % Lymphocytes (%) (Auto) 20.8 % Monocytes (%) (Auto) 9.5 % Eosinophils (%) (Auto) 2.6 % Basophils (%) (Auto) 0.6 % Neutrophils # (Auto) 4.81 1.4-6.5 K/uL Lymphocytes # (Auto) 1.51 1.2-3.4 K/uL Monocytes # (Auto) 0.69 0.11-0.59 K/uL Eosinophils # (Auto) 0.19 0-0.5 K/uL Basophils # (Auto) 0.04 0-0.2 K/uL RDW Standard Deviation 39.1 36.4-46.3 fL RDW Coefficient of Variation 13.0 11.5-14.5 % Immature Granulocyte % (Auto) 0.3 % Immature Granulocyte # (Auto) 0.02 0.00-0.02 K/uL Prothrombin Time 10.0 9.0-12.0 SECONDS Prothromb Time International Ratio 0.9 0.9-1.1 Activated Partial Thromboplast Time 24.6 21.0-31.0 SECONDS Partial Thromboplastin Ratio 0.9 Sodium Level 132 136-145 mmol/L Potassium Level 3.7 3.5-5.1 mmol/L Chloride Level 98 98-107 mmol/L Carbon Dioxide Level 26 21-32 mmol/L Anion Gap 8.0 3-11 mmol/L Blood Urea Nitrogen 11 7-18 mg/dl Creatinine 0.95 0.60-1.20 mg/dl Est Creatinine Clear Calc Drug Dose 39.7 ml/min Estimated GFR () 63.7 Estimated GFR (Non- 55.0 BUN/Creatinine Ratio 11.3 10-20 Random Glucose 121 70-99 mg/dl Lactic Acid Level 3.2 0.4-2.0 mmol/L Calcium Level 9.1 8.5-10.1 mg/dl Total Bilirubin 0.4 0.2-1 mg/dl Direct Bilirubin < 0.1 0-0.2 mg/dl Aspartate Amino Transf (AST/SGOT) 11 15-37 U/L Alanine Aminotransferase (ALT/SGPT) 14 12-78 U/L Alkaline Phosphatase 88 45-117 U/L Troponin I < 0.015 0-0.045 ng/ml Total Protein 7.4 6.4-8.2 gm/dl Albumin 3.9 3.4-5.0 gm/dl Lipase 248 73-393 U/L Microbiology Results 08/13/17 Blood Culture, Received Pending 08/13/17 Blood Culture, Received Pending Diagnostic Radiology ABD/PELVIS IV CONTRAST ONLY CLINICAL HISTORY: 82 years-old Female presenting with LLQ pain, BRBPR, history of diverticulosis. TECHNIQUE: Multidetector CT of the abdomen and pelvis was performed after the administration of intravenous contrast. IV contrast: 94 mL of Optiray 320. A dose lowering technique was used consistent with the principles of ALARA (as low as reasonably achievable). COMPARISON: None. CT DOSE (mGy.cm): The estimated cumulative dose is 354.42 mGy.cm. FINDINGS: [employer] topogram: Unremarkable. Lung bases: Minimal dependent changes likely atelectasis. Solid 3 mm pulmonary nodule in the right middle lobe (series 3 image 32). Mosaic attenuation at the lung bases could suggest small airways disease. Mild multichamber enlargement of the heart. Mitral annular, aortic valve, and coronary artery calcification. No pericardial or pleural effusion. Liver: Normal morphology. Well-defined hypodensity at the hepatic dome likely hepatic cyst. Additional smaller well-circumscribed hypodensity in the left hepatic lobe anteriorly likely also cyst or hamartoma. No suspicious lesion. Patent hepatic vasculature. Biliary: No intrahepatic or extrahepatic biliary ductal dilatation. Normal gallbladder. Pancreas: Prominent duodenal diverticulum at the pancreatic head. Moderate pancreatic parenchymal atrophy. Spleen: Normal. Adrenal glands: Normal. Kidneys and ureters: Dilation of the bilateral renal collecting systems and mild dilation of the ureters. Bladder: The bladder trigone appears herniated inferiorly with a cystocele present. This involves the bladder neck/trigone likely with resultant partial obstruction of the ureterovesical junctions. Pelvic organs: Uterus surgically absent. Bowel: Diverticulosis of the descending and sigmoid colon. No diverticulitis. Normal appendix. No bowel obstruction. Small hiatal hernia. Prominent duodenal diverticulum without associated inflammatory change at the level of the pancreatic head. Peritoneal cavity: No free fluid or intraperitoneal gas. Vasculature: Atherosclerosis of the normal caliber abdominal aorta. IVC patent. Lymph nodes: No enlarged lymph nodes in the abdomen or pelvis. Abdominal wall: Normal. Musculoskeletal: Degenerative changes of the pubic symphysis and lumbar spine. Mild osteopenia. IMPRESSION: 1. Diverticulosis. No evidence of diverticulitis. 2. Dilation of the bilateral renal collecting systems and ureters could suggest hydroureteronephrosis. 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 Correlate with gynecologic examination. [~ rep ct add3]] CHEST ONE VIEW PORTABLE CLINICAL HISTORY: 82 years-old Female presenting with EVALUATE GI BLEED. TECHNIQUE: Portable upright AP view of the chest was obtained. COMPARISON: 03/13/2017. FINDINGS: Atherosclerosis of the aortic arch. Cardiac silhouette normal in size. Prominence and crowding of vasculature in the lung bases likely from mildly low lung volumes. Lungs and pleural spaces clear. Degenerative changes of the thoracic spine. Upper abdomen normal. IMPRESSION: 1. No acute cardiopulmonary disease. EKG SR 83, no acute ischemic changes noted. Impression Assessment and Plan 82 yo F with acute onset rectal bleeding without pain, symptoms or anemia admitted for observation. 1. Hematochezia- large differential, however, with blood not mixed into stool, bleeding being infrequent and not causing anemia, and no abdominal pain or other symptoms, suspect hemorrhoidal bleeding. However, differential includes but is not limited to diverticular bleed, malignancy, polyps, ischemia colitis, infection. With no abdominal pain reported or on exam, the elevated lactate is less concerning. There are also no reports of intestinal angina or functional dyspepsia. There is no colonoscopy on file that I can find. She is hemodynamically stable; will repeat H/H this evening along with lactate after 2 L IVF hydration given in the ER and consult GI to see her in the morning. Clear liquids for now until GI evaluates. 2. HTN-elevated but may just be situational as she initially didn't want to come into the hospital and was somewhat stressed out about logistics. Will repeat on the floor and monitor closely. Cont hydrochlorothiazide, losartan and metoprolol per home regimen. 3. Seasonal allergies-uses Mel regularly. We discussed the need for this and she states it really helps her chronic post-nasal drip. 4. Asymptomatic bacteriuria-urine culture pending. Levaquin started empirically. Will likely need outpatient workup of poss cystocele. DVT proh-SCDs in setting of bleed Full Code-discussed with she and her daughters who are at bedside. Dispo-to Med[facility]Surg [facility] Med/Surg Resuscitation Status FULL RESUSCITATION VTE Prophylaxis VTE Risk Assessment Done? Y/N: Yes Risk Level: Moderate Given or contraindicated: SCD's, Contraindicated
[2017-08-13 14:32] VITALS: BP 180/78; PULSE 86; TEMP 36.9; O2SAT 94; Ht 165.1 cm; Wt 64.0 kg
[2017-08-13 17:00] LABS: HEMATOCRIT 33.4 % (37-47)
[2017-08-13 19:52] VITALS: BP 179/74; PULSE 91; TEMP 36.9; O2SAT 96
[2017-08-13] MEDS: POTASSIUM CHLORIDE 10 MEQ TABCR PO SCH (20:46)
[2017-08-13] MEDS: METOPROLOL TARTRATE 25 MG TAB PO SCH (20:47)
[2017-08-14 00:01] VITALS: BP 144/71; PULSE 75; TEMP 36.9; O2SAT 96
[2017-08-14 04:00] VITALS: BP 155/78; PULSE 83; TEMP 36.8; O2SAT 95
[2017-08-14 06:19] LABS: HEMATOCRIT 36.7 % (37-47); MEAN CELL VOLUME 83.2 fL (80-100); MEAN CORPUSCULAR HEMOGLOBIN 29.3 pg (25-34); MEAN CORPUSCULAR HGB CONC 35.1 g/dl (32-36); MEAN PLATELET VOLUME 8.4 fL (7.4-10.4); PLATELET COUNT 300 K/uL (130-400); RED BLOOD COUNT 4.41 M/uL (4.2-5.4); WHITE BLOOD COUNT 7.64 K/uL (4.8-10.8)
[2017-08-14 06:52] LABS: CREATININE 0.84 mg/dl (0.60-1.20); POTASSIUM 3.7 mmol/L (3.5-5.1)
[2017-08-14 07:28] VITALS: BP 159/78; PULSE 91; TEMP 36.7; O2SAT 97
[2017-08-14 08:00] VITALS: O2SAT 97
--- NOTE | 2017-08-14 09:04 | Gastrointestinal Consultation ---
Gastrointestinal Consultation Date of Consultation: Aug 14, 2017 Attending Physician: Antonio Consulting Physician: Pilo Reason for Consultation: BRBPR History of Present Illness Patient is a 82 year old female wit history of HTN who presented to the ED for evaluation of rectal bleeding - GI was consulted for management. Pt was seen and evaluated, chart reviewed. Of note she has never had an EGD or colonoscopy before. Pt tells me she as in her typical state of health up until about two weeks ago. She notes that she typically moves her bowels 1-2 times daily, formed stools, but they are not hard to pass and there is no straining. Two monday's ago she had an episode of BRBPR. At this time there was no abdominal pain or rectal pain. She tells me she was not aware of the episode until she looked in the toilet bowel. Blood filled toilet water. Stool was brown and formed. No clots. She tells me the next day she had a normal stool and continued to have normal BMs up until two days ago. At this time there was another isolated episode of rectal bleeding, BRB without clots, stool brown, no rectal pain or abdominal pain. Denies fever, chills, CP, SOB, abdominal pain, N/ V/D. No sick contacts, no new medications. VSS, H&H stable, elevated lactate of 3.2, recheck at 1.7. Pt tells me she feels well and wants to go home today. EGD: none Colonoscopy: none CT ABD 08/13/17:Diverticulosis. No evidence of diverticulitis. Dilation of the bilateral renal collecting systems and ureters could suggest hydroureteronephrosis. 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 Correlate with gynecologic examination. Past Medical/Surgical History Medical Problems: (1) BPV (benign positional vertigo) Status: Acute (2) Lower GI bleed Status: Acute (3) Sinusitis Status: Acute (4) UTI (urinary tract infection) Status: Acute Past Medical History: HTN, hx of basal cell skin CA, hx of melanoma skin CA Past Surgical History: appendectomy, skin tag removal, cancerous skin lesion removal, total hysterectomy Family History FH: cancer FH: hypertension FH: lung disease Heart disease Kidney stone Social History Smoking Status: Never Smoker Drug Use: none Marital Status: single Housing Status: lives alone Occupation Status: retired Allergies Coded Allergies: Atenolol (Verified Allergy, Unknown, UNKNOWN, 08/13/17) Cephalosporins (Verified Allergy, Unknown, UNKNOWN, 08/13/17) Uncoded Allergies: CALCIUM CANNEL BLOCKERS (Allergy, Severe, ARMS & LEGS GO NUMB, 05/29/13) Current Medications Home Meds and Scripts Medications Dose Route/Sig Max Daily Dose Days Date Category Dose Instructions Mel Allergy (Fexofenadine Hcl) 180 Mg Tab 1 Tab PO DAILY 08/13/17 Reported Potassium Chloride Er (Potassium Chloride) 10 Meq Cap 10 Meq PO BID 90 03/13/17 Reported Lopressor (Metoprolol Tartrate) 25 Mg Tab 25 Mg PO BID 05/29/13 Reported TAKES Q AM & 1400 Cozaar (Losartan Potassium) 100 Mg Tab 100 Mg PO DAILY 05/29/13 Reported Hctz (Hydrochlorothiazide) 50 Mg Tab 50 Mg PO QAM 05/29/13 Reported Review of Systems Constitutional: No fever, No chills, No weight loss, No fatigue Respiratory: No cough, No shortness of breath Cardiac: No chest pain Abdomen: No pain, No nausea, No vomiting, No diarrhea, No constipation Physical Exam Date Time Temp Pulse Resp B/P (MAP) Pulse Ox O2 Delivery O2 Flow Rate FiO2 08/14/17 07:28 36.7 91 18 159/78 (105) 97 08/14/17 04:00 36.8 83 18 155/78 (103) 95 Room Air 08/14/17 00:01 Room Air 08/14/17 00:01 36.9 75 18 144/71 (95) 96 Room Air 08/13/17 19:52 36.9 91 20 179/74 (109) 96 Room Air 08/13/17 16:00 Room Air 08/13/17 14:32 36.9 86 18 180/78 94 Room Air 08/13/17 13:03 87 16 157/73 08/13/17 12:11 84 16 163/98 94 Room Air 08/13/17 11:06 81 16 159/77 96 Room Air 08/13/17 10:24 77 16 179/84 98 Room Air 08/13/17 09:46 79 17 149/85 97 Room Air 08/13/17 08:58 97 Room Air General Appearance: no apparent distress (upright in bed, just finished breakfast) Eyes: PERRL ENT: hearing grossly normal Neck: no adenopathy Respiratory/Chest: lungs clear, normal breath sounds Cardiovascular: regular rate, rhythm, no murmur Abdomen: normal bowel sounds, non tender, soft, no organomegaly, no pulsatile mass, + pertinent finding (Rectal: external exam with evidence of nonthrombosed external hemorrhids, internal exam was not tolerated and deferred at that point) Neurologic/Psych: alert, normal mood/affect, oriented x 3 Skin: normal color, no jaundice, warm/dry, no rash Laboratory Results Last 24 Hours Test 08/13/17 16:47 08/14/17 06:06 Hemoglobin 12.1 g/dL 12.9 g/dL Hematocrit 33.4 % 36.7 % Lactic Acid Level 1.7 mmol/L White Blood Count 7.64 K/uL Red Blood Count 4.41 M/uL Mean Corpuscular Volume 83.2 fL Mean Corpuscular Hemoglobin 29.3 pg Mean Corpuscular Hemoglobin Concent 35.1 g/dl RDW Standard Deviation 39.1 fL RDW Coefficient of Variation 13.0 % Platelet Count 300 K/uL Mean Platelet Volume 8.4 fL Sodium Level 135 mmol/L Potassium Level 3.7 mmol/L Chloride Level 100 mmol/L Carbon Dioxide Level 26 mmol/L Anion Gap 9.0 mmol/L Blood Urea Nitrogen 8 mg/dl Creatinine 0.84 mg/dl Est Creatinine Clear Calc Drug Dose 44.9 ml/min Estimated GFR () 74.0 Estimated GFR (Non- 63.8 BUN/Creatinine Ratio 9.0 Random Glucose 118 mg/dl Calcium Level 9.0 mg/dl Impression Patient is a 82 year old female w/ history of HTN who presents through the ED for evaluation of two episodes of painless BRBPR and elevated lactate, which has no resolved. VSS, H&H stable without evidence of significant blood loss. She is having formed stools without straining, and has not had any weight loss. Denies any family history of GI cancers, specifically no history of colon CA. She has never had an EGD or Colonoscopy before, but she is agreeable to endoscopic evaluation. Differentials including but not limited to hemorrhoidal bleed, diverticular bleed, colonic polyp, infectious process and malignancy were discussed - all questions were answered. Plan IVF fluids Watch H&H while admitted Monitor stools while admitted Transfuse if necessary Stools for c.diff and culture if diarrhea develops Outpatient colonoscopy GI to sign off. Please call with any questions and/or concerns. ATTESTATION: I have performed a history and physical examination of this patient and reviewed the electronic record. Specifically, on physical examination there is no abdominal tenderness. I have discussed the case with MYRIAM Lux. The above note reflects my findings, conclusions, and recommendations. Luc Alvarez MD
[2017-08-14] MEDS: FEXOFENADINE HCL 180 MG TAB PO SCH (09:19)
[2017-08-14] MEDS: LOSARTAN POTASSIUM 50 MG TAB PO SCH (09:19)
[2017-08-14] MEDS: HYDROCHLOROTHIAZIDE 50 MG TAB PO SCH (09:20)
[2017-08-14] MEDS: POTASSIUM CHLORIDE 10 MEQ TABCR PO SCH ×2 (09:20→21:20)
[2017-08-14] MEDS: METOPROLOL TARTRATE 25 MG TAB PO SCH ×2 (09:21→21:20)
[2017-08-14 11:18] VITALS: BP 158/79; PULSE 79; TEMP 36.7; O2SAT 96
[2017-08-14] MEDS: LEVOFLOXACIN 250 MG TAB PO SCH (11:32)
--- NOTE | 2017-08-14 12:30 | Progress Note ---
Internal Med Progress Note Date of Service: Aug 14, 2017. Provider Documentation: SUBJECTIVE: Seen and examined at bedside States feeling well No bleeding issues since hospitalization Denies CP/SOB/Dizziness/N/V/Abd pain/Urinary symptoms Offers no complaints Family at bedside OBJECTIVE: Vital Signs-as noted below Physical Exam: General Appearance:Moderately built and nourished, no apparent distress Head: normocephalic, Atraumatic Eyes: normal inspection, EOMI, PERRL Neck: supple, Trachea midline Respiratory/Chest: Normal breath sounds, CTA Cardiovascular: S1, S2, No murmur Abdomen/GI:Soft, Non tender, Bowel sounds present Extremities/Musculoskelatal:normal inspection, no edema Neurologic/Psych:AAOX3, grossly no focal neurological deficits Skin: normal color, warm Lab data as noted below. ASSESSMENT & PLAN: Hematochezia: DD: Diverticular bleed/Hemorrhoids/Polyps Hb stable, monitor H&H Transfuse PRN Appreciate GI input Planned for colonoscopy as outpatient Advance diet Presented with elevated lactate levels: cultures pending HTN: mildly elevated likely situational Asymptomatic continue home meds monitor Seasonal allergies: stable Asymptomatic bacteriuria: urine culture pending Continue Levaquin for now Possible cystocele on CT scan: Needs work up as outpatient DVT px: SCDs in setting of bleed Code Status: Full Code Disposition: Plan to discharge home tomorrow if stable Vital Signs: Date Time Temp Pulse Resp B/P (MAP) Pulse Ox O2 Delivery O2 Flow Rate FiO2 08/14/17 11:18 36.7 79 20 158/79 (105) 96 Room Air 08/14/17 08:00 97 Room Air 08/14/17 07:28 36.7 91 18 159/78 (105) 97 08/14/17 04:00 36.8 83 18 155/78 (103) 95 Room Air 08/14/17 00:01 Room Air 08/14/17 00:01 36.9 75 18 144/71 (95) 96 Room Air 08/13/17 19:52 36.9 91 20 179/74 (109) 96 Room Air 08/13/17 16:00 Room Air 08/13/17 14:32 36.9 86 18 180/78 94 Room Air 08/13/17 13:03 87 16 157/73 Lab Results: Results Past 24 Hours Test 9/17/17 16:47 08/14/17 06:06 Range/Units Hemoglobin 12.1 12.9 12.0-16.0 g/dL Hematocrit 33.4 36.7 37-47 % Lactic Acid Level 1.7 0.4-2.0 mmol/L White Blood Count 7.64 4.8-10.8 K/uL Red Blood Count 4.41 4.2-5.4 M/uL Mean Corpuscular Volume 83.2 80-100 fL Mean Corpuscular Hemoglobin 29.3 25-34 pg Mean Corpuscular Hemoglobin Concent 35.1 32-36 g/dl RDW Standard Deviation 39.1 36.4-46.3 fL RDW Coefficient of Variation 13.0 11.5-14.5 % Platelet Count 300 130-400 K/uL Mean Platelet Volume 8.4 7.4-10.4 fL Sodium Level 135 136-145 mmol/L Potassium Level 3.7 3.5-5.1 mmol/L Chloride Level 100 98-107 mmol/L Carbon Dioxide Level 26 21-32 mmol/L Anion Gap 9.0 3-11 mmol/L Blood Urea Nitrogen 8 7-18 mg/dl Creatinine 0.84 0.60-1.20 mg/dl Est Creatinine Clear Calc Drug Dose 44.9 ml/min Estimated GFR () 74.0 Estimated GFR (Non- 63.8 BUN/Creatinine Ratio 9.0 10-20 Random Glucose 118 70-99 mg/dl Calcium Level 9.0 8.5-10.1 mg/dl
[2017-08-14 15:21] VITALS: BP 153/83; PULSE 78; TEMP 36.7; O2SAT 97
[2017-08-14 20:13] LABS: HEMATOCRIT 35.4 % (37-47)
[2017-08-15] VITALS: BP 158/72; PULSE 74; TEMP 36.9; O2SAT 96; O2SAT 97
[2017-08-15 06:02] LABS: HEMATOCRIT 35.8 % (37-47); MEAN CELL VOLUME 83.1 fL (80-100); MEAN CORPUSCULAR HEMOGLOBIN 28.5 pg (25-34); MEAN CORPUSCULAR HGB CONC 34.4 g/dl (32-36); MEAN PLATELET VOLUME 8.6 fL (7.4-10.4); PLATELET COUNT 304 K/uL (130-400); RED BLOOD COUNT 4.31 M/uL (4.2-5.4)
[2017-08-15 06:30] LABS: BUN/CREATININE RATIO 12.4 (10-20); CALCIUM 8.9 mg/dl (8.5-10.1); CREATININE 0.92 mg/dl (0.60-1.20); POTASSIUM 3.4 mmol/L (3.5-5.1)
[2017-08-15 07:40] VITALS: BP 142/86; PULSE 91; TEMP 36.8; O2SAT 94
[2017-08-15 08:00] VITALS: O2SAT 94
[2017-08-15] MEDS: POTASSIUM CHLORIDE 10 MEQ TABCR PO SCH (08:40)
[2017-08-15] MEDS: HYDROCHLOROTHIAZIDE 50 MG TAB PO SCH (08:41)
[2017-08-15] MEDS: LOSARTAN POTASSIUM 50 MG TAB PO SCH (08:41)
[2017-08-15] MEDS: METOPROLOL TARTRATE 25 MG TAB PO SCH (08:41)
[2017-08-15] MEDS: FEXOFENADINE HCL 180 MG TAB PO SCH (08:41)
[2017-08-15 08:50] VITALS: BP 136/84; PULSE 108
--- NOTE | 2017-08-15 09:51 | Progress Note ---
Internal Med Progress Note Date of Service: Aug 15, 2017. Provider Documentation: SUBJECTIVE: Seen and examined at bedside Doing well today No bleeding issues since hospitalization Denies CP/SOB/Dizziness/N/V/Abd pain/Urinary symptoms Offers no complaints OBJECTIVE: Vital Signs-as noted below Physical Exam: General Appearance:Moderately built and nourished, no apparent distress Head: normocephalic, Atraumatic Eyes: normal inspection, EOMI, PERRL Neck: supple, Trachea midline Respiratory/Chest: Normal breath sounds, CTA Cardiovascular: S1, S2, No murmur Abdomen/GI:Soft, Non tender, Bowel sounds present Extremities/Musculoskelatal:normal inspection, no edema Neurologic/Psych:AAOX3, grossly no focal neurological deficits Skin: normal color, warm Lab data as noted below. ASSESSMENT & PLAN: Hematochezia: DD: Diverticular bleed/Hemorrhoids/Polyps Transfuse PRN Appreciate GI input Hb stable Planned for colonoscopy as outpatient Asymptomatic bacteruria UA: contaminated Urine culture:Group B strep Asymptomatic No plan for treatment unless symptomatic. Follow up with PCP if symptomatic HTN: Stable Asymptomatic continue home meds monitor Seasonal allergies: stable Possible cystocele on CT scan: Needs work up as outpatient DVT px: SCDs in setting of bleed Code Status: Full Code Disposition: Plan to discharge home today Follow up with Sandra OSULLIVAN (For ) on 08/18/17 at 12:45pm Follow up with your anode worker on 08/17/17 at 7:15 am for colonoscopy Discuss with your primary care physician about possible need for antibiotics if you develop any Urinary symptoms (Burning pain, chills, fever, blood in urine) Seek immediate medical attention if your symptoms reoccur or worsen: Bleeding in stools Vital Signs: Date Time Temp Pulse Resp B/P (MAP) Pulse Ox O2 Delivery O2 Flow Rate FiO2 08/15/17 08:50 108 08/15/17 07:40 36.8 91 16 142/86 (104) 94 Room Air 08/15/17 00:00 36.9 74 18 158/72 (100) 96 Room Air 08/15/17 00:00 97 Room Air 08/14/17 16:00 Room Air 08/14/17 15:21 36.7 78 16 153/83 (106) 97 08/14/17 11:18 36.7 79 20 158/79 (105) 96 Room Air Lab Results: Results Past 24 Hours Test 08/14/17 20:00 08/15/17 05:25 Range/Units Hemoglobin 13.0 12.3 12.0-16.0 g/dL Hematocrit 35.4 35.8 37-47 % White Blood Count 8.60 4.8-10.8 K/uL Red Blood Count 4.31 4.2-5.4 M/uL Mean Corpuscular Volume 83.1 80-100 fL Mean Corpuscular Hemoglobin 28.5 25-34 pg Mean Corpuscular Hemoglobin Concent 34.4 32-36 g/dl RDW Standard Deviation 39.4 36.4-46.3 fL RDW Coefficient of Variation 13.0 11.5-14.5 % Platelet Count 304 130-400 K/uL Mean Platelet Volume 8.6 7.4-10.4 fL Sodium Level 132 136-145 mmol/L Potassium Level 3.4 3.5-5.1 mmol/L Chloride Level 97 98-107 mmol/L Carbon Dioxide Level 27 21-32 mmol/L Anion Gap 8.0 3-11 mmol/L Blood Urea Nitrogen 11 7-18 mg/dl Creatinine 0.92 0.60-1.20 mg/dl Est Creatinine Clear Calc Drug Dose 41.0 ml/min Estimated GFR () 66.3 Estimated GFR (Non- 57.2 BUN/Creatinine Ratio 12.4 10-20 Random Glucose 112 70-99 mg/dl Calcium Level 8.9 8.5-10.1 mg/dl
--- NOTE | 2017-08-15 09:55 | Discharge Summary ---
Discharge Summary Date of Service Aug 15, 2017. Discharge Summary Admission Date: Aug 13, 2017 at 12:13 Discharge Date: Aug 15, 2017 Discharge Disposition: Home Principal Diagnosis: Bleeding per rectum Procedures: CT ABD: 1. Diverticulosis. No evidence of diverticulitis. 2. Dilation of the bilateral renal collecting systems and ureters could suggest hydroureteronephrosis. 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 Correlate with gynecologic examination. CXR: No acute cardiopulmonary disease. Consultations: GI Pending Studies/Follow-Up: Follow up with Sandra OSULLIVAN (For ) on 08/18/17 at 12:45pm Follow up with your margin analyst on 08/17/17 at 7:15 am for colonoscopy Discuss with your primary care physician about possible need for antibiotics if you develop any Urinary symptoms (Burning pain, chills, fever, blood in urine) Seek immediate medical attention if your symptoms reoccur or worsen: Bleeding in stools Medication Reconciliation Continued Medications: Fexofenadine Hcl (Mel Allergy) 180 Mg Tab 1 TAB PO DAILY, 0 Refills Hydrochlorothiazide (Hctz) 50 Mg Tab 50 MG PO QAM, TAB Losartan Potassium (Cozaar) 100 Mg Tab 100 MG PO DAILY, TAB Metoprolol Tartrate (Lopressor) 25 Mg Tab 25 MG PO BID, TAB TAKES Q AM & 1400 Potassium Chloride (Potassium Chloride Er) 10 Meq Cap 10 MEQ PO BID for 90 Days, #180 CAP 3 Refills Admission Information HPI (per Admitting provider): 82 yo F with no h/o rectal bleeding presents to the ER this morning with one bowel movement that had bright red blood not mixed into the stool. She describes a similar episode one week ago that went away and was followed by normal daily bowel movements. She reports some positional lightheadedness, but this is chronic for her and with no changes this morning. She states "I'm always careful when I get up." She denies any nausea, abdominal pain or diarrhea. She also denies UTI symptoms including no flank pain, fevers, chills , dysuria, urinary urgency, urinary incontinence, or hematuria. She denies having issues with bladder prolapse in the past. She also reported some chest pain to the ER physician, which she didn't initially recall when I first asked about it. She states that she had two minutes of chest pain that was a twinge on the left lateral side of her breast and states that it was not concerning to her, she just didn't know what might have caused that. At baseline she is a very active, healthy 82 y/o who keeps up with her own household and likes to go shopping at the mall with her daughters who are present at bedside. She does not have to stop and rest ever when walking the mall and her daughters corroborate that she is very active. The patient denies any history of chest pain or shortness of breath in the past. Today's episode of pain was not associated with shortness of breath, nausea, lightheadedness, diaphoresis and the pain came on at rest, resolved spontaneously and did not radiate anywhere. She denies any recent infectious symptoms or illnesses, and denies any recent medication changes or antibiotic use. No colonoscopy was available on file. Physical Exam (per Admitting): GEN: WNWD, in no acute distress, alert and appropriate HEENT: NC/AT, PERRL, normal sclerae, pharynx non-acute, no cervical LAD CARDIO: reg rate, S1/2 heard without m/g/r LUNGS: CTA bilaterally, no crackles, rales or wheezes, good diaphragmatic excursion ABD: soft, non-tender, non-distended, no rebound or guarding, +BS, no CVA tenderness RECTAL: deferred EXTREMITY: RP and DP palpable 2+ bilat, no LE swelling or edema, extremities are warm and well-perfused NEURO: CN 2-12 grossly intact, sensation intact throughout MUSC: 5/5 strength throughout, no gross focal deficits SKIN: warm and dry Hospital Course Hematochezia: DD: Diverticular bleed/Hemorrhoids/Polyps Transfuse PRN Appreciate GI input Hb stable Planned for colonoscopy as outpatient Asymptomatic bacteruria UA: contaminated Urine culture:Group B strep Asymptomatic No plan for treatment unless symptomatic. Follow up with PCP if symptomatic HTN: Stable Asymptomatic continue home meds monitor Seasonal allergies: stable Possible cystocele on CT scan: Needs work up as outpatient DVT px: SCDs in setting of bleed Code Status: Full Code Disposition: Plan to discharge home today Follow up with Sandra OSULLIVAN (For ) on 08/18/17 at 12:45pm Follow up with your margin analyst on 08/17/17 at 7:15 am for colonoscopy Discuss with your primary care physician about possible need for antibiotics if you develop any Urinary symptoms (Burning pain, chills, fever, blood in urine) Seek immediate medical attention if your symptoms reoccur or worsen: Bleeding in stools Total time spent on discharge = 32 minutes This includes examination of the patient, discharge planning, medication reconciliation, and communication with other providers. Discharge Instructions Discharge Instructions Date of Service Aug 15, 2017. Admission Reason for Admission: Rectal Bleeding Discharge Discharge Diagnosis / Problem: Bleeding per rectum Discharge Goals Goal(s): Decrease discomfort, Improve function Activity Recommendations Activity Limitations: resume your previous activity Exercise/Sports Limitations: as tolerated . Instructions / Follow-Up Instructions / Follow-Up Follow up with Sandra OSULLIVAN (For ) on 08/18/17 at 12:45pm Follow up with your margin analyst on 08/17/17 at 7:15 am for colonoscopy Discuss with your primary care physician about possible need for antibiotics if you develop any Urinary symptoms (Burning pain, chills, fever, blood in urine) Seek immediate medical attention if your symptoms reoccur or worsen: Bleeding in stools Current Hospital Diet Patient's current hospital diet: Regular Diet, AHA Diet (Heart Healthy), Low Sodium Diet (2gm Na) Discharge Diet Recommended Diet: AHA Diet (Heart Healthy), Low Sodium Diet (2gm Na) Pending Studies Studies pending at discharge: yes List of pending studies: Final Urine culture results Medical Emergencies . Who to Call and When: Medical Emergencies: If at any time you feel your situation is an emergency, please call 911 immediately. . Non-Emergent Contact Non-Emergency issues call your: Primary Care Provider, Process Improvement Engineer Call Non-Emergent contact if: you have a fever, your pain is not controlled, your pain is worsening, your pain is unusual for you, your pain is concerning you, you have any medication questions Seek immediate medical attention if your symptoms reoccur or worsen. . "Provider Documentation" section prepared by Isauro Patton. . VTE Core Measure Inpt VTE Proph given/why not?: SCD's, Contraindicated
[2017-08-15 10:00] VITALS: BP 136/84; PULSE 108; TEMP 36.8; O2SAT 94
[2017-08-15] MEDS ORDERED: POTASSIUM CHLORIDE 10 MEQ TABCR PO ONE (10:00)
[2017-08-15] MEDS: LEVOFLOXACIN 250 MG TAB PO SCH (10:26)
== END 2017-08-15 10:45 | disposition home or self-care (01) ==
LOC: C.EDB 08:08 → C.MED 12:13 → EDBEDREQSVC 12:24 → ENRESERV 12:47
PROVIDERS: ADMIT Hospitalist; ATTEND Internal Medicine
DX: K62.5 Hemorrhage of anus and rectum (principal); I10 Essential (primary) hypertension; H81.10 Benign paroxysmal vertigo, unspecified ear; Z87.440 Personal history of urinary (tract) infections; Z85.828 Personal history of other malignant neoplasm of skin; Z85.820 Personal history of malignant melanoma of skin; Z90.49 Acquired absence of other specified parts of digestive tract; Z90.710 Acquired absence of both cervix and uterus; Z82.49 Family history of ischemic heart disease and other diseases of the circulatory system; Z84.1 Family history of disorders of kidney and ureter; Z83.6 Family history of other diseases of the respiratory system

== ENCOUNTER 2021-06-06 08:16 | Inpatient (IN) ==
[2021-06-06] MEDS ORDERED: KETOROLAC TROMETHAMINE 15 MG/ML VIAL IV STA (08:28)
[2021-06-06] MEDS ORDERED: ONDANSETRON INJ 2 MG/ML 2 ML VIAL IV STA (08:28)
[2021-06-06] MEDS ORDERED: SODIUM CHLORIDE 0.9% 500 ML IV STA (08:28)
--- NOTE | 2021-06-06 08:36 | Emergency Department Note ---
Impression & Plan Lower abdominal pain, Acute urinary retention, Acute diverticulitis, Fecal impaction ED Provider Note NAME: ALFRED BARRAZA AGE: 86 SEX: F : 1935 ARRIVES VIA: Ambulance INFORMANT: [Patient] ED PROVIDER(S): [Boris Monson MD] CHIEF COMPLAINT: Lower abdominal pain HISTORY OF PRESENT ILLNESS: The patient is an 86-year-old female with a history of UTIs. She states that she has had 2 days of lower abdominal pain. She is not urinating properly and thinks her bladder is full. She also is having difficulty moving her bowels. The pain is moderate in severity. There has been no fever, no chills, no cough or congestion or chest pain. The patient is not currently on any antibiotic. The pain is constant and does not really radiate. She presents by EMS. REVIEW OF SYSTEMS: See HPI for pertinent positives and negatives. A total of ten systems were reviewed and were otherwise negative. PMHx/PSHx: See Below SOCIAL HISTORY: See Below. PHYSICAL EXAM: GENERAL: Patient is in no acute distress. HEENT: No acute trauma, normocephalic atraumatic, mucous membranes moist, no nasal congestion, no scleral icterus. NECK: No stridor, no adenopathy, no meningismus, trachea is midline. LUNGS: Clear to auscultation bilaterally, no wheeze, no rhonchi, breath sounds equal. HEART: 2/6 systolic murmur, regular rate and rhythm. ABDOMEN: Soft, there is some lower abdominal distention, she is tender in the lower abdomen bilaterally, the abdomen is soft and there is no peritonitis. EXTREMITIES: No cyanosis or edema, full range of motion of all the joints without pain or difficulty, no signs for acute trauma. NEUROLOGIC: Oriented x 3, no acute motor or sensory deficits, no focal weakness. SKIN: No rash, no jaundice, no diaphoresis. DIFFERENTIAL DIAGNOSIS: Appendicitis, ovarian cyst, ovarian torsion, infections, diverticulitis, UTI, urinary retention, obstruction, mesenteric ischemia, aortic pathology, inflammatory bowel disease, renal colic, PUD, pancreatitis, biliary pathology, hernia, volvulus, constipation, as well as other pathologies. EMERGENCY DEPARTMENT COURSE/PROCEDURES: ECG: Indication was abdominal pain. The ECG shows a sinus rhythm with a PAC. The rate is 75. There is some diffuse nonspecific ST change. There is no ST elevation. The QTc is 480. Continuous Cardiac Monitoring: An order was placed for continuous cardiac monitoring. The monitor shows a rate of 82 with normal sinus rhythm. MEDICAL DECISION MAKING: There is no leukocytosis or concerning anemia. Platelet count slightly elevated. Sodium mildly low but not in need of emergent correction. There was some evidence for dehydration with a creatinine elevation. No concerning liver enzyme elevation. No evidence for pancreatitis. ECG shows a sinus rhythm, no acute ischemia. Cardiac enzyme testing x1 is not consistent with acute cardiac injury. Urinalysis does not show infection. Covid testing is negative. Abdominal and pelvis CT shows acute diverticulitis as well as some proctitis. There was evidence for fecal impaction. There was no bowel obstruction. No abscess or bowel perforation. The patient had her bladder drained. About 500 cc drained. She was given an enema and did have a decent result. She received a liter of IV saline for hydration. She was given oral Senokot 2 tablets. She received IV Zofran for nausea, IV Toradol for pain. She was given IV Unasyn for the diagnosis of diverticulitis. The patient is still having abdominal discomfort. As per her family, she is not doing the best at home. There is concerns for her safety. I do think the patient would be best served with a hospital stay. She has diverticulitis of the small and large bowel. She has proctitis. She was retaining urine. There is some evidence for mild acute kidney injury. I spoke to the patient and caser in. The on-call hospitalist was consulted. Past Med/Surg History Medical History CKD (chronic kidney disease), stage III Dyslipidemia Hypertension Surgical History (Updated 06/06/21 @ 12:34 by Della Whitfield PA-C) S/P RHEA-BSO Family History (Updated 06/06/21 @ 12:35 by Della Whitfield PA-C) Mother Cancer Sister Coronary heart disease Social History Smoking Status: Never smoker Hx Alcohol Use: No Hx Substance Use: No Feels Safe at Home: Yes Allergies Allergies Allergy/AdvReac Type Severity Reaction Status Date / Time atenolol Allergy Unknown UNKNOWN Verified 06/06/21 09:39 Cephalosporins Allergy Unknown UNKNOWN Verified 06/06/21 09:39 CALCIUM CANNEL BLOCKERS Allergy Severe ARMS & Uncoded 06/06/21 09:39 LEGS GO NUMB Home Meds Home Medications Medication Instructions Recorded Confirmed hydrochlorothiazide 50 mg PO QAM 05/22/21 06/06/21 losartan 100 mg PO QAM 05/22/21 06/06/21 metoprolol tartrate 25 mg PO BID 05/22/21 06/06/21 potassium chloride 10 meq PO BID 05/22/21 06/06/21 Results & Data (ED) Vital Signs Vital Signs - 24 hr 06/06/21 08:19 06/06/21 08:47 06/06/21 09:01 Temperature Temperature Source Pulse Rate 80 79 Pulse Rate from SpO2 Sensor 78 79 Pulse Rhythm Pulse Strength Respiratory Rate 20 25 H Respiratory Effort / Characteristics Respiratory Depth Blood Pressure 161/97 H 137/67 Blood Pressure Mean 118 90 Pulse Oximetry 100 100 96 Oxygen Delivery Method Room Air Sepsis Recent Fever Within 48 Hours Sepsis New/Unexplained Change in Mental Status Sepsis Action Taken by Nursing 06/06/21 09:13 06/06/21 10:00 06/06/21 11:14 Temperature 37 C Temperature Source Oral Pulse Rate 82 76 79 Pulse Rate from SpO2 Sensor 76 103 H Pulse Rhythm Regular Pulse Strength Normal Respiratory Rate 16 23 18 Respiratory Effort / Characteristics Non-Labored Respiratory Depth Normal Blood Pressure 145/72 H 152/106 H Blood Pressure Mean 96 121 Pulse Oximetry 97 100 98 Oxygen Delivery Method Room Air Sepsis Recent Fever Within 48 Hours No Sepsis New/Unexplained Change in Mental Status N/A Sepsis Action Taken by Nursing No Action Required 06/06/21 11:30 06/06/21 12:00 06/06/21 12:30 Temperature Temperature Source Pulse Rate 71 78 72 Pulse Rate from SpO2 Sensor 70 78 75 Pulse Rhythm Pulse Strength Respiratory Rate 22 18 15 Respiratory Effort / Characteristics Respiratory Depth Blood Pressure 156/63 H 157/79 H 172/88 H Blood Pressure Mean 94 105 116 Pulse Oximetry 99 98 97 Oxygen Delivery Method Sepsis Recent Fever Within 48 Hours Sepsis New/Unexplained Change in Mental Status Sepsis Action Taken by Nursing 06/06/21 13:00 06/06/21 13:30 Temperature Temperature Source Pulse Rate 72 Pulse Rate from SpO2 Sensor 78 70 Pulse Rhythm Pulse Strength Respiratory Rate 21 Respiratory Effort / Characteristics Respiratory Depth Blood Pressure 152/83 H 180/102 H Blood Pressure Mean 106 128 Pulse Oximetry 99 98 Oxygen Delivery Method Sepsis Recent Fever Within 48 Hours Sepsis New/Unexplained Change in Mental Status Sepsis Action Taken by Group Home Medications Current Medication List: was personally reviewed by me Laboratory Data Attestation: I reviewed the patient's lab results. Result diagrams: 06/06/21 08:50 06/06/21 08:50 Lab Results 06/06/21 06/06/21 06/06/21 Range/Units 08:35 08:50 08:50 WBC 7.66 (4.8-10.8) K/uL RBC 4.17 L (4.2-5.4) M/uL Hgb 12.0 (12.0-16.0) g/dL Hct 33.6 L (37-47) % MCV 80.6 (80-100) fL MCH 28.8 (25-34) pg MCHC 35.7 (32-36) g/dL RDW Std Deviation 37.4 (36.4-46.3) fL RDW Coeff of Loren 12.8 (11.5-14.5) % Plt Count 427 H (130-400) K/uL MPV 8.9 (7.4-10.4) fL Immature Gran % (Auto) 0.4 % Neut % (Auto) 72.0 % Lymph % (Auto) 17.9 % [place] % (Auto) 8.2 % Eos % (Auto) 1.2 % Baso % (Auto) 0.3 % Neut # (Auto) 5.52 (1.4-6.5) K/uL Lymph # (Auto) 1.37 (1.2-3.4) K/uL [place] # (Auto) 0.63 H (0.11-0.59) K/uL Eos # (Auto) 0.09 (0-0.5) K/uL Baso # (Auto) 0.02 (0-0.2) K/uL Immature Gran # (Auto) 0.03 H (0.00-0.02) K/uL Sodium 135 L (136-145) mmol/L Potassium 3.7 (3.5-5.1) mmol/L Chloride 102 (98-107) mmol/L Carbon Dioxide 22 (21-32) mmol/L Anion Gap 11.0 (3-11) BUN 36 H (7-18) mg/dl Creatinine 1.67 H (0.6-1.2) mg/dl Est Cr Clr Drug Dosing 21.0 ml/min Est GFR ( Amer) 31.3 ml/min Est GFR (Non-Af Amer) 27.0 ml/min BUN/Creatinine Ratio 21.3 H (10-20) Glucose 118 H (70-99) mg/dl Calcium 8.8 (8.5-10.1) mg/dl Magnesium (1.8-2.4) mg/dl Total Bilirubin 0.4 (0.2-1) mg/dl AST 9 L (15-37) U/L ALT 19 (12-78) U/L Alkaline Phosphatase 79 (45-117) U/L Troponin I < 0.015 (0-0.045) ng/ml Total Protein 7.2 (6.4-8.2) gm/dl Albumin 3.1 L (3.4-5.0) gm/dl Globulin 4.1 H (2.5-4.0) gm/dl Albumin/Globulin Ratio 0.8 L (0.9-2) Lipase 241 (73-393) U/L Urine Color Yellow Urine Appearance Clear (Clear) Urine pH 5.5 (4.5-7.5) Ur Specific [place] 1.010 (1.000-1.030) Urine Protein Negative (Negative) Urine Glucose (UA) Negative (Negative) Urine Ketones Negative (Negative) Urine Blood Negative (Negative) Urine Nitrite Negative (Negative) Urine Bilirubin Negative (Negative) Urine Urobilinogen Negative (Negative) Ur Leukocyte Esterase Negative (Negative) COVID-19 Eval Order SARS-CoV-2 (PCR) (Negative) 06/06/21 06/06/21 06/06/21 Range/Units 08:50 12:25 12:25 WBC (4.8-10.8) K/uL RBC (4.2-5.4) M/uL Hgb (12.0-16.0) g/dL Hct (37-47) % MCV (80-100) fL MCH (25-34) pg MCHC (32-36) g/dL RDW Std Deviation (36.4-46.3) fL RDW Coeff of Loren (11.5-14.5) % Plt Count (130-400) K/uL MPV (7.4-10.4) fL Immature Gran % (Auto) % Neut % (Auto) % Lymph % (Auto) % [place] % (Auto) % Eos % (Auto) % Baso % (Auto) % Neut # (Auto) (1.4-6.5) K/uL Lymph # (Auto) (1.2-3.4) K/uL [place] # (Auto) (0.11-0.59) K/uL Eos # (Auto) (0-0.5) K/uL Baso # (Auto) (0-0.2) K/uL Immature Gran # (Auto) (0.00-0.02) K/uL Sodium (136-145) mmol/L Potassium (3.5-5.1) mmol/L Chloride (98-107) mmol/L Carbon Dioxide (21-32) mmol/L Anion Gap (3-11) BUN (7-18) mg/dl Creatinine (0.6-1.2) mg/dl Est Cr Clr Drug Dosing ml/min Est GFR ( Amer) ml/min Est GFR (Non-Af Amer) ml/min BUN/Creatinine Ratio (10-20) Glucose (70-99) mg/dl Calcium (8.5-10.1) mg/dl Magnesium 1.8 (1.8-2.4) mg/dl Total Bilirubin (0.2-1) mg/dl AST (15-37) U/L ALT (12-78) U/L Alkaline Phosphatase (45-117) U/L Troponin I (0-0.045) ng/ml Total Protein (6.4-8.2) gm/dl Albumin (3.4-5.0) gm/dl Globulin (2.5-4.0) gm/dl Albumin/Globulin Ratio (0.9-2) Lipase (73-393) U/L Urine Color Urine Appearance (Clear) Urine pH (4.5-7.5) Ur Specific [place] (1.000-1.030) Urine Protein (Negative) Urine Glucose (UA) (Negative) Urine Ketones (Negative) Urine Blood (Negative) Urine Nitrite (Negative) Urine Bilirubin (Negative) Urine Urobilinogen (Negative) Ur Leukocyte Esterase (Negative) COVID-19 Eval Order Covid19 at [facility] SARS-CoV-2 (PCR) NEGATIVE (Negative) Administered Medications Discontinued Medications Sodium Chloride (Nss) 500 mls @ 999 mls/hr IV .Q31M STA Stop: 06/06/21 08:58 Last Infusion: 06/06/21 12:08 Dose: 0 mls/hr Documented by: [id number] Admin: 06/06/21 09:08 Dose: 999 mls/hr Documented by: [id number] Sodium Chloride (Nss 1000ml) 500 mls @ 999 mls/hr IV .Q31M ONE Stop: 06/06/21 10:05 Last Infusion: 06/06/21 12:08 Dose: 0 mls/hr Documented by: [id number] Admin: 06/06/21 09:42 Dose: 999 mls/hr Documented by: [id number] Ampicillin Sodium/Sulbactam Sodium 3,000 mg/ Sodium Chloride 108 mls @ 200 mls/hr IV NOW STA; Protocol Stop: 06/06/21 11:03 Last Infusion: 06/06/21 12:07 Dose: 0 mls/hr Documented by: [id number] Admin: 06/06/21 11:35 Dose: 200 mls/hr Documented by: [id number] Ioversol (Optiray 320 100ml) 93 ml IV ONCE ONE Stop: 06/06/21 08:40 Last Admin: 06/06/21 08:40 Dose: 93 ml Documented by: [id number] Ketorolac Tromethamine (Ketorolac Tromethamine 15 Mg/Ml Vial) 15 mg IV NOW STA Stop: 06/06/21 08:29 Last Admin: 06/06/21 09:08 Dose: 15 mg Documented by: [id number] Ondansetron HCl (Ondansetron Inj 2 Mg/Ml 2 Ml Vial) 4 mg IV NOW STA Stop: 06/06/21 08:29 Last Admin: 06/06/21 09:08 Dose: 4 mg Documented by: [id number] Senna/Docusate Sodium (Docusate Sodium/Senna 50/8.6mg Tab) 2 tab PO NOW STA Stop: 06/06/21 11:33 Last Admin: 06/06/21 11:36 Dose: 2 tab Documented by: [id number] Imaging Data Radiologist's Impression: Abdomen/Pelvis CT 06/06/21 08:[address] WITH IV CONTRAST CT DOSE: 292.30 mGy.cm HISTORY: Acute lower abdominal pain lower abd pain TECHNIQUE: Multiaxial CT images of the abdomen and pelvis were performed following the IV administration of 93 cc of Optiray, A dose lowering technique was utilized adhering to the principles of ALARA. COMPARISON STUDY: 08/13/2017 FINDINGS: Mild cardiomegaly. Trace pericardial effusion. Coronary artery, mitral and aortic annular calcifications. The lung bases are generally clear. There is no pneumatosis or pneumoperitoneum. Unremarkable spleen, moderately atrophic pancreas, adrenal glands, gallbladder and liver. There is patency of the hepatic and portal veins. There are a few hepatic cysts present which measure up to 2.3 cm. Mild to moderate bilateral hydroureteronephrosis is similar in appearance to the 2017 exam. 6 mm left renal cyst. No urolith. Urinary bladder is decompressed. With perivesicular stranding and partially imaged cystocele. Uterus appears surgically absent. Atherosclerosis of the aorta without aneurysm. No adenopathy. Small hiatal hernia. Large duodenal diverticulum. Marked fecal retention of the rectum. Mild rectal wall thickening with perirectal stranding. Pelvic floor relaxation. Extensive colonic diverticulosis. There is mild inflammatory stranding adjacent to the proximal sigmoid. There is diverticulosis of the ileum. There is an inflamed ileal diverticulum of the abdominal right lower quadrant on image 257 series 3. No abscess or perforation. The visualized appendix appears noninflamed. Degenerative changes of the spine, pelvis and hips. Mild superior endplate compression deformity at L5 without retropulsion is unchanged. IMPRESSION: 1. Diverticulosis of the large and small bowel. There is acute ileal diverticulosis of the abdominal right lower quadrant. No abscess or perforation. 2. Trace inflammatory stranding adjacent to the proximal sigmoid colon may reflect mild acute sigmoid diverticulitis 3. Moderate to marked rectal fecal retention. 4. Mild to moderate hydronephrosis is similar to the 2017 exam. No obstructing ureteral calculus or lesion identified. 5. Decompressed urinary bladder with partially imaged cystocele. 6. Additional findings as above. ACT 112: Negative or not required by law. The above report was generated using voice recognition software. It may contain grammatical, syntax or spelling errors. Electronically signed by: Sharif Keith M.D. 06/06/2021 10:11 AM Discharge Plan Visit Data Chief Complaint: Abdominal Pain Stated Complaint: AB PAIN ED Provider: Boris Monson Discharge Problem: Lower abdominal pain, Acute urinary retention, Acute diverticulitis, Fecal impaction Patient Disposition: Admitted As Inpatient Condition: Fair Forms Stand Alone Forms: [facility] Prescriptions Prescriptions: No Action potassium chloride 10 mEq Capsule, Extended Release 10 meq PO BID RF: 0 hydrochlorothiazide 50 mg Tablet 50 mg PO QAM RF: 0 losartan 100 mg Tablet 100 mg PO QAM RF: 0 metoprolol tartrate 25 mg Tablet 25 mg PO BID RF: 0 Referrals Referrals: Russ Angel MD [Primary Care Provider] -
[2021-06-06] MEDS ORDERED: OPTIRAY 320 100ml IV ONE (08:39)
[2021-06-06 08:53] LABS: Appearance Urine Clear (Clear); Bilirubin Urine Negative (Negative); Blood Urine Negative (Negative); Color Urine Yellow; Glucose Urine UA Negative (Negative); Ketones Urine Negative (Negative); Leukocyte Esterase Urine Negative (Negative); Nitrite Urine Negative (Negative); Protein Urine Negative (Negative); Urobilinogen Urine Negative (Negative); pH Urine 5.5 (4.5-7.5)
[2021-06-06 09:14] LABS: Basophils # (auto) 0.02 K/uL (0-0.2); Basophils % (auto) 0.3 %; Eosinophils # (auto) 0.09 K/uL (0-0.5); Eosinophils % (auto) 1.2 %; Hematocrit (blood only) 33.6 % (37-47); Immature Granulocytes # (auto) 0.03 K/uL (0.00-0.02); Immature Granulocytes % (auto) 0.4 %; Lymphocytes # (auto) 1.37 K/uL (1.2-3.4); Lymphocytes % (auto) 17.9 %; Mean Corpuscular Hemoglobin 28.8 pg (25-34); Mean Corpuscular Hgb Conc 35.7 g/dL (32-36); Mean Corpuscular Volume 80.6 fL (80-100); Mean Platelet Volume 8.9 fL (7.4-10.4); Monocytes # (auto) 0.63 K/uL (0.11-0.59); Monocytes % (auto) 8.2 %; Neutrophils # (auto) 5.52 K/uL (1.4-6.5); Platelet Count 427 K/uL (130-400); RDW Coefficient of Variation 12.8 % (11.5-14.5); RDW Standard Deviation 37.4 fL (36.4-46.3); Red Blood Count 4.17 M/uL (4.2-5.4); White Blood Count 7.66 K/uL (4.8-10.8)
[2021-06-06 09:32] LABS: Alanine Aminotransferase 19 U/L (12-78); Albumin Level 3.1 gm/dl (3.4-5.0); Aspartate Aminotransferase 9 U/L (15-37); BUN Creatinine Ratio 21.3 (10-20); Blood Urea Nitrogen 36 mg/dl (7-18); Calcium 8.8 mg/dl (8.5-10.1); Carbon Dioxide 22 mmol/L (21-32); Chloride 102 mmol/L (98-107); Est GFR (African American) 31.3 ml/min; Glucose 118 mg/dl (70-99); Lipase 241 U/L (73-393); Potassium 3.7 mmol/L (3.5-5.1); Sodium 135 mmol/L (136-145)
[2021-06-06] MEDS ORDERED: SODIUM CHLORIDE 0.9% 1000ML 500 ML IV ONE (09:35)
[2021-06-06 09:37] LABS: Albumin Globulin Ratio 0.8 (0.9-2); Alkaline Phosphatase 79 U/L (45-117); Bilirubin,Total 0.4 mg/dl (0.2-1); Globulin 4.1 gm/dl (2.5-4.0); Total Protein 7.2 gm/dl (6.4-8.2); Troponin I < 0.015 ng/ml (0-0.045)
--- NOTE | 2021-06-06 10:12 | CT Scan Report ---
ABDOMEN AND PELVIS CT WITH IV CONTRAST CT DOSE: 292.30 mGy.cm HISTORY: Acute lower abdominal pain lower abd pain TECHNIQUE: Multiaxial CT images of the abdomen and pelvis were performed following the IV administrat ion of 93 cc of Optiray, A dose lowering technique was utilized adhering to the principles of ALARA. COMPARISON STUDY: 08/13/2017 FINDINGS: Mild cardiomegaly. Trace pericardial effusion. Coronary artery, mitral and aortic annular calcificati ons. The lung bases are generally clear. There is no pneumatosis or pneumoperitoneum. Unremarkable sp randi, moderately atrophic pancreas, adrenal glands, gallbladder and liver. There is patency of the he patic and portal veins. There are a few hepatic cysts present which measure up to 2.3 cm. Mild to moderate bilateral hydroureteronephrosis is similar in appearance to the 2017 exam. 6 mm left renal cyst. No urolith. Urinary bladder is decompressed. With perivesicular stranding and partially imaged cystocele. Uterus appears surgically absent. Atherosclerosis of the aorta without aneurysm. No adenopathy. Small hiatal hernia. Large duodenal diverticulum. Marked fecal retention of the rectum. Mild rectal w all thickening with perirectal stranding. Pelvic floor relaxation. Extensive colonic diverticulosis. There is mild inflammatory stranding adjacent to the proximal sigmoid. There is diverticulosis of the ileum. There is an inflamed ileal diverticulum of the abdominal right lower quadrant on image 257 se [place] 3. No abscess or perforation. The visualized appendix appears noninflamed. Degenerative changes of the spine, pelvis and hips. Mild superior endplate compression deformity at L5 without retropulsio n is unchanged. IMPRESSION: 1. Diverticulosis of the large and small bowel. There is acute ileal diverticulosis of the abdominal right lower quadrant. No abscess or perforation. 2. Trace inflammatory stranding adjacent to the proximal sigmoid colon may reflect mild acute sigmoid diverticulitis 3. Moderate to marked rectal fecal retention. 4. Mild to moderate hydronephrosis is similar to the 2017 exam. No obstructing ureteral calculus or l esion identified. 5. Decompressed urinary bladder with partially imaged cystocele. 6. Additional findings as above. ACT 112: Negative or not required by law. The above report was generated using voice recognition software. It may contain grammatical, syntax o r spelling errors. Electronically signed by: Sharif Keith M.D. 06/06/2021 10:11 AM
[2021-06-06] MEDS ORDERED: AMPICILLIN/SULBACTAM SOD 3,000 MG in 0.9 % SODIUM CHLORIDE 100 ML IV STA (10:31)
--- NOTE | 2021-06-06 11:05 | Electrocardiogram Report ---
Test Reason : Blood Pressure : / mmHG Vent. Rate : 075 BPM Atrial Rate : 075 BPM P-R Int : 160 ms QRS Dur : 068 ms QT Int : 430 ms P-R-T Axes : 090 018 030 degrees QTc Int : 480 ms Sinus rhythm with Premature atrial complexes Otherwise normal ECG When compared with ECG of 22-MAY-2021 07:04, Premature atrial complexes are now Present Criteria for Inferior infarct are no longer Present Confirmed by Michael Palacios ([id number]) on 06/06/2021 11:05:14 AM Referred By: Confirmed By:Rito Palacios
[2021-06-06] MEDS ORDERED: DOCUSATE SODIUM/SENNA 50/8.6MG TAB PO STA (11:32)
--- NOTE | 2021-06-06 11:51 | History & Physical Report ---
Date of Service June 06, 2021 Assessment & Plan (1) Diverticulitis: (2) Abdominal pain: Pt is 86 y/o F with PMH HTN, dyslipidemia, CKD III presented to ER with c/o lower abdominal pain x 1 day. No BM for 2 days. In ER patient afebrile, vital stable. No leukocytosis. UA negative CT abdomen pelvis: 1. Diverticulosis of the large and small bowel. There is acute ileal diverticulitis of the abdominal right lower quadrant. No abscess or perforation. 2. Trace inflammatory stranding adjacent to the proximal sigmoid colon may reflect mild acute sigmoid diverticulitis -In ER given total 1 L NSS, Unasyn, Toradol 15 mg IV, Zofran -IV fluids -Zosyn -Soft, low fiber diet -Tylenol as needed pain. Will avoid NSAIDs with ORACIO -GI consult -CBC, BMP in a.m. (3) Acute kidney injury superimposed on CKD: BUN: 36, Cr: 1.6. Baseline Cr: 1.1-1.3 Probable secondary to dehydration, poor oral intake -Hold HCTZ -Avoid nephrotoxic agents when possible -Monitor renal functions (4) Constipation: Fecal retention noted on CT abdomen/pelvis In ER received soapsuds enema, senna/docusate 2 tabs -Miralax -Monitor may need to give additional agents (5) Urinary retention: Reports difficulty urinating In ER patient was straight cathed for [address] abdomen pelvis: Mild to moderate hydronephrosis is similar to the 2017 exam. No obstructing ureteral calculus or lesion identified. Decompressed urinary bladder with partially imaged cystocele. Urinary retention possible secondary to cystocele, constipation -Morales catheter -Patient may need voiding trial (6) Hypertension: -Hold HCTZ, losartan -Continue metoprolol (7) Dyslipidemia: Not on medications DVT Prophylaxis -Heparin SQ Full code as per discussion with pt and patient's daughters Follows with Dr Fritz for routine care Pt was seen and care coordinated with Dr Byrnes. See addendum History of Present Illness Chief Complaint: abdominal pain Primary Care Provider: Russ Angel MD Pt is 86 y/o F with PMH HTN, dyslipidemia, CKD III presented to ER with c/o lower abdominal pain x 1 day. History obtained from patient and patient's daughters. Reports patient did not have BM for 2 days. Reports that she usually has a BM every day. Today she is complaining of lower abdominal pain. Also reports today having difficulty urinating. Patient's daughters report that she has not been eating or drinking well for several days. Denies nausea or vomiting. Reports patient with recent UTI and was treated with Cipro. Since UTI patient has had increased confusion. Patient reports lightheadedness with walking. Denies falls. Denies fever/chills, diaphoresis, VILLALOBOS, syncope, vision changes, neck pain, CP, SOB, orthopnea, palpitations, cough, sore throat, choking, otalgia, rhinorrhea, paresthesias, weakness, extremity weakness, extremity edema, rashes, dysuria, hematuria. Allergies Allergy/AdvReac Type Severity Reaction Status Date / Time atenolol Allergy Unknown UNKNOWN Verified 06/06/21 09:39 Cephalosporins Allergy Unknown UNKNOWN Verified 06/06/21 09:39 CALCIUM CANNEL BLOCKERS Allergy Severe ARMS & Uncoded 06/06/21 09:39 LEGS GO NUMB Home Medications Medication Instructions Recorded Confirmed Type hydrochlorothiazide 50 mg PO QAM 05/22/21 06/06/21 History losartan 100 mg PO QAM 05/22/21 06/06/21 History metoprolol tartrate 25 mg PO BID 05/22/21 06/06/21 History potassium chloride 10 meq PO BID 05/22/21 06/06/21 History Past Med/Surg History Medical History (Updated 06/06/21 @ 12:41 by Della Whitfield PA-C) CKD (chronic kidney disease), stage III Dyslipidemia Hypertension Surgical History (Updated 06/06/21 @ 12:34 by Della Whitfield PA-C) S/P RHEA-BSO Family History (Updated 06/06/21 @ 12:35 by Della Whitfield PA-C) Mother Cancer Sister Coronary heart disease Social History (Updated 06/06/21 @ 12:35 by Della Whitfield PA-C) Smoking Status: Never smoker Hx Alcohol Use: No Hx Substance Use: No Feels Safe at Home: Yes Review of Systems Review of Systems: All systems reviewed & are unremarkable except as noted in HPI & below Physical Exam Physical Exam: General: no distress, WDWN Head: normocephalic, atraumatic Eyes: PERRL, EOM's intact, conjunctiva non-injected, anicteric ENT: normal inspection external ears, nose, mucous membranes dry Neck: supple, trachea midline Lungs: clear, no respiratory distress, no wheezing/rhonchi/rales CV: RRR, +systolic murmur, no pretibial edema Abd: normal BS, soft, +tenderness to palpation suprapubic and LLQ without rebound or guarding Ext: no cyanosis, no calf tenderness Neuro: Alert, oriented to person, place, knows year, month, knows previous president, no focal deficits noted, normal affect Skin: warm, dry Results & Data Results & Data ([facility]) Vital Signs (Past 12 Hours) Vital Signs Temp Pulse Resp BP Pulse Ox 06/06/21 11:30 71 22 156/63 H 99 06/06/21 11:14 79 18 152/106 H 98 06/06/21 10:00 76 23 145/72 H 100 06/06/21 09:13 37 C 82 16 97 06/06/21 09:01 79 25 H 137/67 96 06/06/21 08:47 100 06/06/21 08:19 80 20 161/97 H 100 Laboratory Results Short CBC 06/06/21 Range/Units 08:50 WBC 7.66 (4.8-10.8) K/uL Hgb 12.0 (12.0-16.0) g/dL Hct 33.6 L (37-47) % Plt Count 427 H (130-400) K/uL BMP 06/06/21 08:50 Sodium 135 L Potassium 3.7 Chloride 102 Carbon Dioxide 22 BUN 36 H Creatinine 1.67 H Glucose 118 H Calcium 8.8 Cardiac Enzymes 06/06/21 Range/Units 08:50 Troponin I < 0.015 (0-0.045) ng/ml Liver Function 06/06/21 Range/Units 08:50 Total Bilirubin 0.4 (0.2-1) mg/dl AST 9 L (15-37) U/L ALT 19 (12-78) U/L Alkaline Phosphatase 79 (45-117) U/L Albumin 3.1 L (3.4-5.0) gm/dl Urine 06/06/21 Range/Units 08:35 Urine Color Yellow Urine Appearance Clear (Clear) Urine pH 5.5 (4.5-7.5) Ur Specific [place] 1.010 (1.000-1.030) Urine Protein Negative (Negative) Urine Glucose (UA) Negative (Negative) Diagnostic Findings Abdomen/Pelvis CT 06/06/21 08:[address] WITH IV CONTRAST CT DOSE: 292.30 mGy.cm HISTORY: Acute lower abdominal pain lower abd pain TECHNIQUE: Multiaxial CT images of the abdomen and pelvis were performed following the IV administration of 93 cc of Optiray, A dose lowering technique was utilized adhering to the principles of ALARA. COMPARISON STUDY: 08/13/2017 FINDINGS: Mild cardiomegaly. Trace pericardial effusion. Coronary artery, mitral and aortic annular calcifications. The lung bases are generally clear. There is no pneumatosis or pneumoperitoneum. Unremarkable spleen, moderately atrophic pancreas, adrenal glands, gallbladder and liver. There is patency of the hepatic and portal veins. There are a few hepatic cysts present which measure up to 2.3 cm. Mild to moderate bilateral hydroureteronephrosis is similar in appearance to the 2017 exam. 6 mm left renal cyst. No urolith. Urinary bladder is decompressed. With perivesicular stranding and partially imaged cystocele. Uterus appears surgically absent. Atherosclerosis of the aorta without aneurysm. No adenopathy. Small hiatal hernia. Large duodenal diverticulum. Marked fecal retention of the rectum. Mild rectal wall thickening with perirectal stranding. Pelvic floor relaxation. Extensive colonic diverticulosis. There is mild inflammatory stranding adjacent to the proximal sigmoid. There is diverticulosis of the ileum. There is an inflamed ileal diverticulum of the abdominal right lower quadrant on image 257 series 3. No abscess or perforation. The visualized appendix appears noninflamed. Degenerative changes of the spine, pelvis and hips. Mild superior endplate compression deformity at L5 without retropulsion is unchanged. IMPRESSION: 1. Diverticulosis of the large and small bowel. There is acute ileal diverticulosis of the abdominal right lower quadrant. No abscess or perforation. 2. Trace inflammatory stranding adjacent to the proximal sigmoid colon may reflect mild acute sigmoid diverticulitis 3. Moderate to marked rectal fecal retention. 4. Mild to moderate hydronephrosis is similar to the 2017 exam. No obstructing ureteral calculus or lesion identified. 5. Decompressed urinary bladder with partially imaged cystocele. 6. Additional findings as above. ACT 112: Negative or not required by law. The above report was generated using voice recognition software. It may contain grammatical, syntax or spelling errors. Electronically signed by: Sharif Keith M.D. 06/06/2021 10:11 AM Supervising Physician Co-Signing Physician Notes Date of Service: June 06, 2021 Attending addendum: Patient seen and examined, care coordinated with Cadence Whitfield PA-C. This is a 86-year-old female with minimal medical problem, history of hypert ension/CKD stage III Brought to ER with complaint of lower abdominal pain discomfort which has been ongoing for past 2 to 3 days, Patient is very hard of hearing, most of the information obtained from patient's daughters present at bedside. Per the daughters, patient was treated for urine tract infection few weeks before, completed p.o. ciprofloxacin, Patient continued to show evidence of more forgetfulness, repeating herself, confusion, Past few days, poor p.o. intake, not urinating, patient had not had any bowel movements for 2 days as well. Was seen at [facility] yesterday, Had lab work done which showed low sodium, Patient was asked t to take Gatorade. Today worsening of abdominal pain, discomfort , unable to urinate brought her to the ER. The ER patient's vitals stable, afebrile, CT abdomen pelvis showed sigmoid diverticulitis, Bladder scan revealed more than a liter of urinary retention, straight cath was done Physical exam: Brief General: Elderly female, frail appearing, awake and alert, no apparent distress noted HEENT anicteric sclera Lungs: Clear to auscultate Cardiac, regular S1-S2, no lower extremity edema Abdomen: Tenderness/discomfort on left lower quadrant, no rebound, abdomen soft, bowel sounds active Assessment and plan: Abdominal pain/sigmoid diverticulitis: CT abdomen pelvis shows acute sigmoid diverticulitis, with evidence of small bowel diverticulitis as well No evidence of sepsis, normal white count, no fever, She denies of any vomiting, did had episode of nausea. Ordered for IV fluids, Ordered diet as patient does not have significant GI symptoms at present, IV antibiotic Zosyn. GI eval requested Patient does not have severe pain or discomfort in abdomen, will order for scheduled dose of Tylenol Very small dose of morphine as needed for severe pain,-try to limit narcotics as it can worsen constipation/increased risk of confusion Urinary retention History of bladder prolapse, urine tract infection few weeks before Possible worsening of urinary retention due to acute illness Ordered for Morales catheter, Check urine culture Hyponatremia Due to dehydration/poor p.o. intake, acute diverticulitis Hold HCTZ, will order IV fluids LR at 100 mL/h Repeat lab in a.m. Acute renal failure Acute renal failure on CKD stage III, Due to dehydration/poor p.o. intake, acute diverticulitis Continue IV fluids as above, hold HCTZ and losartan Avoid NSAIDs and contrast studies Severe constipation/stool retention. CT abdomen pelvis shows no bowel obstruction, Patient given enema in the ER with small bowel movement Continue bowel regimen with scheduled dose of MiraLAX, Colace Increase fiber intake, taking regular bowel regimen if indicated will be discussed on discharge CODE STATUS: Full code discussed with patient and family members DVT prophylaxis subcu heparin Disposition, patient is very active at baseline, independent in her ADLs, lives at home PT OT eval requested prior to discharge Of care discussed with patient and patient's daughter present at bedside, in agreement Please refer to further discussion by Cadence Whitfield PA-C to address other medical issues. Kenya Byrnes MD
[2021-06-06] MEDS ORDERED: ONDANSETRON INJ 2 MG/ML 2 ML VIAL IV PRN (12:07)
[2021-06-06] MEDS ORDERED: POLYETHYLENE (MIRALAX) 17 GM PACK PO PRN (12:07)
[2021-06-06] MEDS ORDERED: MAGNESIUM HYDROXIDE SUSP 30 ML UDC PO PRN (12:07)
[2021-06-06] MEDS ORDERED: ACETAMINOPHEN 325 MG TAB PO PRN (12:07)
[2021-06-06] MEDS ORDERED: ALUMINUM/MAGNESIUM SUSP 30 ML UDC PO PRN (12:07)
[2021-06-06] MEDS ORDERED: LACTATED RINGER'S 1,000 ML IV SCH (12:45)
--- NOTE | 2021-06-06 12:49 | Communication Note ---
Date of Service: June 06, 2021 Attending addendum: Patient seen and examined, care coordinated with Cadence Whitfield PA-C. This is a 86-year-old female with minimal medical problem, history of hypertension/CKD stage III Brought to ER with complaint of lower abdominal pain discomfort which has been ongoing for past 2 to 3 days, Patient is very hard of hearing, most of the information obtained from patient's daughters present at bedside. Per the daughters, patient was treated for urine tract infection few weeks before, completed p.o. ciprofloxacin, Patient continued to show evidence of more forgetfulness, repeating herself, confusion, Past few days, poor p.o. intake, not urinating, patient had not had any bowel movements for 2 days as well. Was seen at [facility] yesterday, Had lab work done which showed low sodium, Patient was asked t to take Gatorade. Today worsening of abdominal pain, discomfort , unable to urinate brought her to the ER. The ER patient's vitals stable, afebrile, CT abdomen pelvis showed sigmoid diverticulitis, Bladder scan revealed more than a liter of urinary retention, straight cath was done Physical exam: Brief General: Elderly female, frail appearing, awake and alert, no apparent distress noted HEENT anicteric sclera Lungs: Clear to auscultate Cardiac, regular S1-S2, no lower extremity edema Abdomen: Tenderness/discomfort on left lower quadrant, no rebound, abdomen soft, bowel sounds active Assessment and plan: Abdominal pain/sigmoid diverticulitis: CT abdomen pelvis shows acute sigmoid diverticulitis, with evidence of small bowel diverticulitis as well No evidence of sepsis, normal white count, no fever, She denies of any vomiting, did had episode of nausea. Ordered for IV fluids, Ordered diet as patient does not have significant GI symptoms at present, IV antibiotic Zosyn. GI eval requested Patient does not have severe pain or discomfort in abdomen, will order for scheduled dose of Tylenol Very small dose of morphine as needed for severe pain,-try to limit narcotics as it can worsen constipation/increased risk of confusion Urinary retention History of bladder prolapse, urine tract infection few weeks before Possible worsening of urinary retention due to acute illness Ordered for Morales catheter, Check urine culture Hyponatremia Due to dehydration/poor p.o. intake, acute diverticulitis Hold HCTZ, will order IV fluids LR at 100 mL/h Repeat lab in a.m. Acute renal failure Acute renal failure on CKD stage III, Due to dehydration/poor p.o. intake, acute diverticulitis Continue IV fluids as above, hold HCTZ and losartan Avoid NSAIDs and contrast studies Severe constipation/stool retention. CT abdomen pelvis shows no bowel obstruction, Patient given enema in the ER with small bowel movement Continue bowel regimen with scheduled dose of MiraLAX, Colace Increase fiber intake, taking regular bowel regimen if indicated will be discussed on discharge CODE STATUS: Full code discussed with patient and family members DVT prophylaxis subcu heparin Disposition, patient is very active at baseline, independent in her ADLs, lives at home PT OT eval requested prior to discharge Of care discussed with patient and patient's daughter present at bedside, in agreement Please refer to further discussion by Cadence Whitfield PA-C to address other medical issues. Kenya Byrnes MD
[2021-06-06] MEDS ORDERED: PIPERACILL/TAZOBAC CONSULT ACTIVE PRN (15:28)
[2021-06-06] MEDS ORDERED: PIPERACILLIN/TAZOBACTAM 3.375 GM in DEXTROSE 5% 100 ML IV SCH (15:28)
[2021-06-06] MEDS ORDERED: bisacodyL 5 MG TABEC PO ONE (15:28)
[2021-06-06] MEDS ORDERED: MoRPHine SULFATE 2 MG/ML CARP IV PRN (15:28)
[2021-06-06] MEDS ORDERED: PIPERACILLIN/TAZOBACTAM 3.375 GM in DEXTROSE 5% 100 ML IV STA (15:43)
[2021-06-06] MEDS: POLYETHYLENE (MIRALAX) 17 GM PACK PO SCH (16:19)
[2021-06-06] MEDS: ADVANCED PROBIOTIC 1250 MG CAPSULE PO SCH (16:21)
[2021-06-06] MEDS ORDERED: ACETAMINOPHEN 500 MG TAB PO SCH (16:30)
[2021-06-06] MEDS: ACETAMINOPHEN 500 MG TAB PO SCH (19:54)
[2021-06-06] MEDS: METOPROLOL TARTRATE 25 MG TAB PO SCH (20:22)
[2021-06-06] MEDS: HEPARIN SOD 5,000 UNIT/0.5 ML VIAL SQ SCH (20:23)
[2021-06-06] MEDS: PIPERACILLIN/TAZOBACTAM 3.375 GM in DEXTROSE 5% 100 ML IV SCH (22:04)
[2021-06-07] MEDS: ACETAMINOPHEN 500 MG TAB PO SCH ×3 (03:30→19:43)
[2021-06-07] MEDS: PIPERACILLIN/TAZOBACTAM 3.375 GM in DEXTROSE 5% 100 ML IV SCH ×3 (05:55→20:46)
[2021-06-07 06:20] LABS: Hematocrit (blood only) 32.8 % (37-47); Hemoglobin 11.1 g/dL (12.0-16.0); Mean Corpuscular Hemoglobin 28.3 pg (25-34); Mean Corpuscular Hgb Conc 33.8 g/dL (32-36); Mean Corpuscular Volume 83.7 fL (80-100); Mean Platelet Volume 8.9 fL (7.4-10.4); Platelet Count 412 K/uL (130-400); RDW Coefficient of Variation 13.1 % (11.5-14.5); RDW Standard Deviation 39.5 fL (36.4-46.3); Red Blood Count 3.92 M/uL (4.2-5.4); White Blood Count 9.13 K/uL (4.8-10.8)
[2021-06-07 06:55] LABS: BUN Creatinine Ratio 20.1 (10-20); Calcium 8.6 mg/dl (8.5-10.1); Creatinine Clr Calc Pharmacy 25.2 ml/min; Est GFR (African American) 39.1 ml/min; Est GFR (Non-African American) 33.8 ml/min; Magnesium 1.8 mg/dl (1.8-2.4); Potassium 3.7 mmol/L (3.5-5.1)
[2021-06-07] MEDS: HEPARIN SOD 5,000 UNIT/0.5 ML VIAL SQ SCH ×2 (08:18→19:43)
[2021-06-07] MEDS: POLYETHYLENE (MIRALAX) 17 GM PACK PO SCH (08:19)
[2021-06-07] MEDS: METOPROLOL TARTRATE 25 MG TAB PO SCH ×2 (08:19→19:43)
[2021-06-07] MEDS: ADVANCED PROBIOTIC 1250 MG CAPSULE PO SCH (08:19)
--- NOTE | 2021-06-07 11:09 | Gastrointestinal Consultation ---
Date of Consultation June 07, 2021 Assessment & Plan (1) Lower abdominal pain: 86 year old female admitted w/ lower abd pain, constipation CT w/ acute ileal diverticulitis without, mild acute sigmoid diverticulitis, moderate to marked rectal fecal retention. She is improved with bowel regimen and and ABX, last colonoscopy in 2017 w/ severe diverticulosis Continue bowel regimen Colace 100 mg twice daily Miralax 1 capful daily Continue ABX for 10 days Discussed OP colonoscopy, she will discuss with daughter. She also wants to talk about this with her PCP. She will contact GI to order if she wants this test done Recall GI as needed. Thank you for allowing us to participate in the care of this patient. Please call with any acute changes, questions or concerns. Please see addendum below with additional recommendation from my supervising physician. (2) Acute urinary retention: Supervising Physician Co-Signing Physician Notes I have seen and examined the patient and discussed the management with MYRIAM Lux. 86 yo fm admitted with abdominal pain, found to have urinary retention s/p erickson cath and also sigmoid diverticulitis. PE - benign abdomen. Abx for sigmoid colitis for 10-14 days, outpt colon in 6-8 weeks if she is agreeable. History of Present Illness Reason for Consultation: abd pain Requesting Physician: Fitz Attending Physician: Kenya Byrnes MD History of Present Illness 86 year old female with history of HTN, dyslipidemia, CKD III presented to ER with c/o lower abdominal pain x 2 day. Notes lower abd pain, severe associated with constipation. Also notes a decreased appetite without nausea, vomiting. in the ED, CT concerning for diverticulitis. She was started on bowel rest and ABX with improved symptoms. This AM she is pain free and tolerating PO Colonsocopy 2017: Severe diverticulosis in the left colon. - Hemorrhoids. - The examination was otherwise normal on direct and retroflexion views. - No specimens collected. CTAP 2020: Diverticulosis of the large and small bowel. There is acute ileal diverticulosis of the abdominal right lower quadrant. No abscess or perforation. 2. Trace inflammatory stranding adjacent to the proximal sigmoid colon may reflect mild acute sigmoid diverticulitis 3. Moderate to marked rectal fecal retention. 4. Mild to moderate hydronephrosis is similar to the 2017 exam. No obstructing ureteral calculus or lesion identified. 5. Decompressed urinary bladder with partially imaged cystocele. 6. Additional findings as above. Allergies Allergy/AdvReac Type Severity Reaction Status Date / Time atenolol Allergy Unknown UNKNOWN Verified 06/06/21 09:39 Cephalosporins Allergy Unknown UNKNOWN Verified 06/06/21 09:39 CALCIUM CANNEL BLOCKERS Allergy Severe ARMS & Uncoded 06/06/21 09:39 LEGS GO NUMB Home Medications Medication Instructions Recorded Confirmed Type hydrochlorothiazide 50 mg PO QAM 05/22/21 06/06/21 History losartan 100 mg PO QAM 05/22/21 06/06/21 History metoprolol tartrate 25 mg PO BID 05/22/21 06/06/21 History potassium chloride 10 meq PO BID 05/22/21 06/06/21 History Patient History Medical History CKD (chronic kidney disease), stage III Dyslipidemia Hypertension Surgical History (Updated 06/06/21 @ 12:34 by Della Whitfield PA-C) S/P RHEA-BSO Family History (Updated 06/06/21 @ 12:35 by Della Whitfield PA-C) Mother Cancer Sister Coronary heart disease Social History Smoking Status: Never smoker Hx Alcohol Use: No Hx Substance Use: No Preferred Language: Serbian Communication Ability: Effective [employer] System Operator Required: No Beliefs That Will Affect Care: None Current Living Situation: Alone Other Information That Helps Us Care for You: No Feels Safe at Home: Yes and No Is there a partner from a previous relationship who is making you feel unsafe now?: No Any Concerns about Your Family Situation: No Would You Like to Speak to Someone About Your Situation: No Safety Concerns: Feels Safe At This Time Assistive Devices: None Review of Systems Review of Systems: All systems reviewed & are unremarkable except as noted in HPI & below Physical Exam Constitutional: WD/WN, vitals as above Neck: trachea midline, no thyromegaly Respiratory: normal respiratory effort, lungs clear to auscultation Cardiovascular: Rate/Rhythm: regular rate and regular rhythm Heart Sounds: no click, no gallop, no murmur and no cardiac rub Gastrointestinal (Abdomen): normal bowel sounds, soft, nontender, no hepatosplenomegaly Skin: no rashes, warm and dry Results & Data ([facility]) Vital Signs (Past 12 Hours) Vital Signs Temp Pulse Pulse Pulse Resp BP Pulse Ox 06/07/21 08:00 74 06/07/21 07:24 36.7 C 82 18 152/64 H 96 06/07/21 02:54 36.6 C 71 19 152/60 H 96 06/07/21 00:59 67 Laboratory Results 06/07/21 06/07/21 06/06/21 Range/Units 05:58 05:58 13:54 WBC 9.13 (4.8-10.8) K/uL RBC 3.92 L (4.2-5.4) M/uL Hgb 11.1 L (12.0-16.0) g/dL Hct 32.8 L (37-47) % MCV 83.7 (80-100) fL MCH 28.3 (25-34) pg MCHC 33.8 (32-36) g/dL RDW Std Deviation 39.5 (36.4-46.3) fL RDW Coeff of Loren 13.1 (11.5-14.5) % Plt Count 412 H (130-400) K/uL MPV 8.9 (7.4-10.4) fL Sodium 137 (136-145) mmol/L Potassium 3.7 (3.5-5.1) mmol/L Chloride 104 (98-107) mmol/L Carbon Dioxide 27 (21-32) mmol/L Anion Gap 6.0 (3-11) BUN 28 H (7-18) mg/dl Creatinine 1.39 H (0.6-1.2) mg/dl Est Cr Clr Drug Dosing 25.2 ml/min Est GFR ( Amer) 39.1 ml/min Est GFR (Non-Af Amer) 33.8 ml/min BUN/Creatinine Ratio 20.1 H (10-20) Glucose 103 H (70-99) mg/dl Calcium 8.6 (8.5-10.1) mg/dl Magnesium 1.8 (1.8-2.4) mg/dl Procalcitonin 0.15 (0-0.5) ng/ml COVID-19 Eval Order SARS-CoV-2 (PCR) (Negative) 06/06/21 06/06/21 06/06/21 Range/Units 12:25 12:25 08:50 WBC (4.8-10.8) K/uL RBC (4.2-5.4) M/uL Hgb (12.0-16.0) g/dL Hct (37-47) % MCV (80-100) fL MCH (25-34) pg MCHC (32-36) g/dL RDW Std Deviation (36.4-46.3) fL RDW Coeff of Loren (11.5-14.5) % Plt Count (130-400) K/uL MPV (7.4-10.4) fL Sodium (136-145) mmol/L Potassium (3.5-5.1) mmol/L Chloride (98-107) mmol/L Carbon Dioxide (21-32) mmol/L Anion Gap (3-11) BUN (7-18) mg/dl Creatinine (0.6-1.2) mg/dl Est Cr Clr Drug Dosing ml/min Est GFR ( Amer) ml/min Est GFR (Non-Af Amer) ml/min BUN/Creatinine Ratio (10-20) Glucose (70-99) mg/dl Calcium (8.5-10.1) mg/dl Magnesium 1.8 (1.8-2.4) mg/dl Procalcitonin (0-0.5) ng/ml COVID-19 Eval Order Covid19 at [facility] SARS-CoV-2 (PCR) NEGATIVE (Negative)
--- NOTE | 2021-06-07 18:42 | Hospitalist Progress Note ---
Date of Service June 07, 2021 Assessment & Plan (1) Diverticulitis: Pt is 86 y/o F with PMH HTN, dyslipidemia, CKD III presented to ER with c/o lower abdominal pain x 1 day. No BM for 2 days. Possible secondary chronic constipation, CT abdomen shows fecal impaction. Had bowel movement multiple times with aggressive bowel regimen (2) Abdominal pain: Pt is 86 y/o F with PMH HTN, dyslipidemia, CKD III presented to ER with c/o lower abdominal pain x 1 day. No BM for 2 days. In ER patient afebrile, vital stable. No leukocytosis. UA negative CT abdomen pelvis: 1. Diverticulosis of the large and small bowel. There is acute ileal diverticulitis of the abdominal right lower quadrant. No abscess or perforation. 2. Trace inflammatory stranding adjacent to the proximal sigmoid colon may reflect mild acute sigmoid diverticulitis -Clinically has improved, no abdominal pain or discomfort, tolerating diet GI consulted, appreciate input (3) Acute kidney injury superimposed on CKD: BUN: 36, Cr: 1.6. Baseline Cr: 1.1-1.3 Probable secondary to dehydration, poor oral intake Creatinine improved to baseline -Hold HCTZ -Avoid nephrotoxic agents when possible -Monitor renal functions (4) Constipation: Fecal retention noted on CT abdomen/pelvis Resolved multiple bowel movement with aggressive bowel regimen Discharge home, patient will be placed on scheduled dose of MiraLAX, increased fiber intake (5) Urinary retention: She of cystocele, chronic urinary retention CT abdomen pelvis: Mild to moderate hydronephrosis is similar to the 2017 exam. No obstructing ureteral calculus or lesion identified. Decompressed urinary bladder with partially imaged cystocele. Urinary retention possible secondary to cystocele, constipation -Patient is doing much better, walking and ambulatory, order to DC Morales catheter Check post vital bladder scan Urology eval outpatient (6) Hypertension: Resume HCTZ losartan -Continue metoprolol (7) Dyslipidemia: Not on medications DVT Prophylaxis -Heparin SQ Full code as per discussion with pt and patient's daughters Follows with Dr Fritz for routine care PT OT evaluation will be requested prior to discharge home Lives at home independently, daughter was concerned that patient has been declining will benefit for assisted living versus repeat rehab Social service consulted Admission and Anticipated Discharge Date Admission Date: June 06, 2021 Subjective Sitting up on edge of bed, baseline dementia, awake and alert, wants to know when she can go home Looking for her blue bathrobe She remembers having it on when she came to the hospital, worried that she may have lost it. No fever or chills, Had multiple bowel movements after aggressive bowel regimen. No abdominal pain no nausea, Tolerating diet No cough or shortness of breath Review of Systems Review of Systems: Unobtainable due to cognitive status (Very pleasant) Physical Exam Constitutional: WD/WN, vitals as above + thin Eyes: + anicteric sclerae ENMT: external ear and nose normal, oropharynx normal Neck: normal visual inspection Respiratory: normal respiratory effort, lungs clear to auscultation Cardiovascular: RRR, no murmur, no edema Gastrointestinal (Abdomen): Percussion/Palpation: abdomen soft; abdomen nontender Musculoskeletal: no cyanosis or clubbing, extremities motor strength 5/5 Skin: no rashes, warm and dry Neurologic: awake (Baseline dementia, very pleasant); no focal motor deficits Psychiatric: Orientation: alert and oriented to person (Dementia) Results & Data Results & Data ([facility]) Vital Signs (Past 12 Hours) Vital Signs Temp Pulse Pulse Resp BP BP Pulse Ox 06/07/21 15:58 36.7 C 84 18 170/78 H 96 06/07/21 15:25 74 06/07/21 12:07 37 C 75 18 161/75 H 95 06/07/21 08:00 74 06/07/21 07:24 36.7 C 82 18 152/64 H 96
[2021-06-08] MEDS ORDERED: HALOPERIDOL LACTATE 5 MG/ML 1 ML VIAL ONE (01:52)
[2021-06-08] MEDS ORDERED: HALOPERIDOL LACTATE 5 MG/ML 1 ML VIAL IM STA (02:00)
[2021-06-08] MEDS: ACETAMINOPHEN 500 MG TAB PO SCH ×2 (03:10→12:30)
[2021-06-08] MEDS: PIPERACILLIN/TAZOBACTAM 3.375 GM in DEXTROSE 5% 100 ML IV SCH ×2 (05:40→14:24)
[2021-06-08 07:52] LABS: BUN Creatinine Ratio 15.4 (10-20); Calcium 8.6 mg/dl (8.5-10.1); Creatinine Clr Calc Pharmacy 31.2 ml/min; Est GFR (African American) 50.8 ml/min; Est GFR (Non-African American) 43.8 ml/min; Potassium 3.4 mmol/L (3.5-5.1)
[2021-06-08] MEDS: ADVANCED PROBIOTIC 1250 MG CAPSULE PO SCH (12:29)
[2021-06-08] MEDS: METOPROLOL TARTRATE 25 MG TAB PO SCH ×2 (12:29→20:29)
[2021-06-08] MEDS: POLYETHYLENE (MIRALAX) 17 GM PACK PO SCH (12:30)
[2021-06-08] MEDS: HEPARIN SOD 5,000 UNIT/0.5 ML VIAL SQ SCH ×2 (12:31→20:29)
[2021-06-08] MEDS ORDERED: ACETAMINOPHEN 500 MG TAB PO PRN (12:56)
[2021-06-08] MEDS ORDERED: POTASSIUM CHLORIDE CRTAB 20 MEQ TABCR PO STA (13:55)
--- NOTE | 2021-06-08 18:00 | Hospitalist Progress Note ---
Date of Service June 08, 2021 Assessment & Plan (1) Diverticulitis: Pt is 86 y/o F with PMH HTN, dyslipidemia, CKD III presented to ER with c/o lower abdominal pain x 1 day. No BM for 2 days. Chronic constipation/fecal impaction Symptom has completely resolved, no complaint of abdominal pain, Tolerating diet, no fever or chills Had bowel movement multiple times with aggressive bowel regimen Appreciate input from gastroenterology recommend continued scheduled bowel regimen. (2) Abdominal pain: Pt is 86 y/o F with PMH HTN, dyslipidemia, CKD III presented to ER with c/o lower abdominal pain x 1 day. No BM for 2 days. In ER patient afebrile, vital stable. No leukocytosis. UA negative CT abdomen pelvis: 1. Diverticulosis of the large and small bowel. There is acute ileal diverticulitis of the abdominal right lower quadrant. No abscess or perforation. 2. Trace inflammatory stranding adjacent to the proximal sigmoid colon may reflect mild acute sigmoid diverticulitis -Clinically has improved, no abdominal pain or discomfort, tolerating diet GI consulted, appreciate input Patient can be discharged on 10 days of p.o. antibiotic, Outpatient colonoscopy can be scheduled if patient's family are interested to pursue (3) Acute kidney injury superimposed on CKD: BUN: 36, Cr: 1.6. Baseline Cr: 1.1-1.3 Admitted with acute renal failure secondary to poor p.o. intake, dehydration Resolved, creatinine improved to baseline Home medications resumed (4) Constipation: Fecal retention noted on CT abdomen/pelvis Resolved multiple bowel movement with aggressive bowel regimen Appreciate input from GI, recommends on scheduled dose of MiraLAX, increased fiber intake (5) Urinary retention: She of cystocele, chronic urinary retention CT abdomen pelvis: Mild to moderate hydronephrosis is similar to the 2017 exam. No obstructing ureteral calculus or lesion identified. Decompressed urinary bladder with partially imaged cystocele. Urinary retention possible secondary to cystocele, constipation/Morales catheter was placed in the ER Morales discontinued: Voiding without any issues after Morales catheter discontinued For every 8 hours bladder scan and notify physician if postvoid urinary retention more than 200 Patient will need urology follow-up after discharge (6) Hypertension: Resume HCTZ losartan -Continue metoprolol (7) Dyslipidemia: Not on medications DVT Prophylaxis -Heparin SQ Full code as per discussion with pt and patient's daughters Follows with Dr Fritz for routine care PT OT evaluation appreciated, patient is stable to return home with home health. Update given to patient's daughter Shirley, wants to discuss with case management regarding office of aging when appropriate having home health aide. Possible discharge home tomorrow with home health Daughter request to discuss with case management in the morning to assess home health services before discharging patient later in the evening, will update CM Admission and Anticipated Discharge Date Admission Date: June 06, 2021 Subjective Patient is pleasantly demented, offers no new complaint, was fairly confused and delirious last night, had code alvarado, Patient does not recall any of the event, Tolerating diet, no nausea vomiting or abdominal pain Bowel movement normalized after bowel regimen, No fever chills or cough Review of Systems Review of Systems: Unobtainable due to cognitive status (Baseline dementia) Physical Exam Constitutional: WD/WN, vitals as above + thin Eyes: + anicteric sclerae ENMT: external ear and nose normal, oropharynx normal Neck: normal visual inspection Respiratory: normal respiratory effort, lungs clear to auscultation Cardiovascular: RRR, no murmur, no edema Gastrointestinal (Abdomen): Percussion/Palpation: abdomen soft; abdomen nontender Musculoskeletal: no cyanosis or clubbing, extremities motor strength 5/5 Skin: no rashes, warm and dry Neurologic: awake (Baseline dementia, very pleasant); no focal motor deficits Psychiatric: Orientation: alert and oriented to person (Dementia) Results & Data Results & Data ([facility]) Vital Signs (Past 12 Hours) Vital Signs Temp Pulse Resp BP Pulse Ox 06/08/21 15:47 36.8 C 61 18 151/79 H 96 06/08/21 11:25 36.6 C 67 18 112/58 L 96 06/08/21 07:42 36.9 C 73 18 152/68 H 97
[2021-06-08] MEDS: POTASSIUM CHLORIDE 10 MEQ TABCR PO SCH (20:29)
[2021-06-08] MEDS: metroNIDAZOLE 500 MG TAB PO SCH (20:29)
[2021-06-08] MEDS: CIPROFLOXACIN 500 MG TAB PO SCH (20:29)
[2021-06-08] MEDS ORDERED: QUEtiapine FUMARATE 25 MG TABLET PO SCH (21:00)
[2021-06-09] MEDS ORDERED: LOSARTAN POTASSIUM 50 MG TAB PO SCH (09:00)
[2021-06-09] MEDS ORDERED: hydroCHLOROthiazide 25 MG TAB PO SCH (09:00)
[2021-06-09] MEDS: POLYETHYLENE (MIRALAX) 17 GM PACK PO SCH (09:55)
[2021-06-09] MEDS: metroNIDAZOLE 500 MG TAB PO SCH ×2 (09:56→13:28)
[2021-06-09] MEDS: ADVANCED PROBIOTIC 1250 MG CAPSULE PO SCH (09:56)
[2021-06-09] MEDS: CIPROFLOXACIN 500 MG TAB PO SCH (09:57)
[2021-06-09] MEDS: METOPROLOL TARTRATE 25 MG TAB PO SCH (09:57)
[2021-06-09] MEDS: POTASSIUM CHLORIDE 10 MEQ TABCR PO SCH (09:57)
[2021-06-09] MEDS: HEPARIN SOD 5,000 UNIT/0.5 ML VIAL SQ SCH (09:58)
[2021-06-09] MEDS ORDERED: POTASSIUM CHLORIDE CRTAB 20 MEQ TABCR PO ONE (10:00)
[2021-06-09 11:33] LABS: BUN Creatinine Ratio 12.5 (10-20); Calcium 8.5 mg/dl (8.5-10.1); Est GFR (African American) 56.2 ml/min; Est GFR (Non-African American) 48.5 ml/min; Potassium 3.6 mmol/L (3.5-5.1)
--- NOTE | 2021-06-09 13:31 | Hospitalist Progress Note ---
Date of Service June 09, 2021 Assessment & Plan (1) Diverticulitis: Plan: Patient is an 86 yr female with H/O HTN, dyslipidemia, CKD III presented to ER with c/o lower abdominal pain x 1 day. No BM for 2 days. Chronic constipation/fecal impaction Acute diverticulitis-POA -CT ABD:Diverticulosis of the large and small bowel. There is acute ileal diverticulosis of the abdominal right lower quadrant. No abscess or perforation. Trace inflammatory stranding adjacent to the proximal sigmoid colon may reflect mild acute sigmoid diverticulitis. Moderate to marked rectal fecal retention. Mild to moderate hydronephrosis is similar to the 2017 exam. No obstructing ure teral calculus or lesion identified. Decompressed urinary bladder with partially imaged cystocele. -IV Zosyn transition to p.o. antibiotics Appreciate GI input Continue bowel regimen Constipation resolved Tolerating diet Outpatient colonoscopy can be scheduled if patient's family are interested to pursue Acute kidney injury superimposed on CKD III: Likely due to dehydration Cr back to baseline Monitor Constipation: Fecal retention noted on CT abdomen/pelvis Resolved Urinary retention: H/O cystocele, chronic urinary retention CT ABD as above Voiding without any issues after Morales catheter discontinued bladder scan PRN Needs follow up with urology after discharge Hypertension: Continue HCTZ, losartan, metoprolol Dyslipidemia: Not on medications DVT Px Heparin SQ Code Status Full code Admission and Anticipated Discharge Date Admission Date: June 06, 2021 Subjective Patient is seen and examined at bedside States feeling well today Offers no complaints Eager to get discharged Denies chest pain, shortness of breath, abdominal pain, nausea, vomiting, dizziness Tolerating diet Review of Systems Review of Systems: All systems reviewed, negative other than Subjective. Physical Exam Physical Exam: Physical Exam: Vitals signs as noted above General Appearance:Moderately built and nourished, no apparent distress Head: normocephalic, Atraumatic Eyes: normal inspection, EOMI Neck: supple, Trachea midline Respiratory/Chest: Normal breath sounds, CTA, No accessory muscle use Cardiovascular: S1, S2, + murmur Abdomen/GI:Soft, Non tender, Bowel sounds present Extremities/Musculoskeletal:normal inspection, no edema Neurologic/Psych:AAOX3, grossly no focal neurological deficits Skin: normal color, warm Results & Data Results & Data ([facility]) Vital Signs (Past 12 Hours) Vital Signs Temp Pulse Pulse Resp BP BP Pulse Ox 06/09/21 13:20 36.6 C 65 71 18 154/81 H 154/78 H 96 06/09/21 07:47 36.6 C 65 18 154/78 H 96 Laboratory Results BMP 06/09/21 11:07 Sodium 136 Potassium 3.6 Chloride 104 Carbon Dioxide 27 BUN 13 Creatinine 1.03 Glucose 130 H Calcium 8.5
--- NOTE | 2021-06-09 13:40 | Discharge Summary ---
Date of Service June 09, 2021 Admission HPI Per Admitting Provider Pt is 86 y/o F with PMH HTN, dyslipidemia, CKD III presented to ER with c/o lower abdominal pain x 1 day. History obtained from patient and patient's daughters. Reports patient did not have BM for 2 days. Reports that she usually has a BM every day. Today she is complaining of lower abdominal pain. Also reports today having difficulty urinating. Patient's daughters report that she has not been eating or drinking well for several days. Denies nausea or vomiting. Reports patient with recent UTI and was treated with Cipro. Since UTI patient has had increased confusion. Patient reports lightheadedness with wa lking. Denies falls. Denies fever/chills, diaphoresis, VILLALOBOS, syncope, vision changes, neck pain, CP, SOB, orthopnea, palpitations, cough, sore throat, choking, otalgia, rhinorrhea, paresthesias, weakness, extremity weakness, extremity edema, rashes, dysuria, hematuria. Admission Exam Per Admitting Provider Physical Exam Physical Exam: General: no distress, WDWN Head: normocephalic, atraumatic Eyes: PERRL, EOM's intact, conjunctiva non-injected, anicteric ENT: normal inspection external ears, nose, mucous membranes dry Neck: supple, trachea midline Lungs: clear, no respiratory distress, no wheezing/rhonchi/rales CV: RRR, +systolic murmur, no pretibial edema Abd: normal BS, soft, +tenderness to palpation suprapubic and LLQ without rebound or guarding Ext: no cyanosis, no calf tenderness Neuro: Alert, oriented to person, place, knows year, month, knows previous president, no focal deficits noted, normal affect Skin: warm, dry Principal Diagnosis Sigmoid diverticulitis Chronic constipation Chronic urinary retention/cystocele Baseline dementia Acute renal failure on CKD stage III:- Resolved Discharge Data Allergies Allergy/AdvReac Type Severity Reaction Status Date / Time atenolol Allergy Unknown UNKNOWN Verified 06/06/21 09:39 Cephalosporins Allergy Unknown UNKNOWN Verified 06/06/21 09:39 CALCIUM CANNEL BLOCKERS Allergy Severe ARMS & Uncoded 06/06/21 09:39 LEGS GO NUMB Consultations 06/06/21 11:41 ED Decision to Admit Stat 06/06/21 12:07 Consult Gastroenterology Routine Ordered Studies 06/06/21 08:28 CT abd pelvis IV con only Stat Hospital Course (1) Diverticulitis: Patient is an 86 yr female with H/O HTN, dyslipidemia, CKD III presented to ER with c/o lower abdominal pain x 1 day. No BM for 2 days. Chronic constipation/fecal impaction Acute diverticulitis-POA -CT ABD:Diverticulosis of the large and small bowel. There is acute ileal diverticulosis of the abdominal right lower quadrant. No abscess or perforation. Trace inflammatory stranding adjacent to the proximal sigmoid colon may reflect mild acute sigmoid diverticulitis. Moderate to marked rectal fecal retention. Mild to moderate hydronephrosis is similar to the 2017 exam. No obstructing ureteral calculus or lesion identified. Decompressed urinary bladder with partially imaged cystocele. -IV Zosyn transition to p.o. antibiotics Appreciate GI input Continue bowel regimen Constipation resolved Tolerating diet Outpatient colonoscopy can be scheduled if patient's family are interested to pursue Acute kidney injury superimposed on CKD III: Likely due to dehydration Cr back to baseline Monitor Constipation: Fecal retention noted on CT abdomen/pelvis Resolved Urinary retention: H/O cystocele, chronic urinary retention CT ABD as above Voiding without any issues after Morales catheter discontinued bladder scan PRN Needs follow up with urology after discharge Hypertension: Continue HCTZ, losartan, metoprolol Dyslipidemia: Not on medications DVT Px Heparin SQ Code Status Full code Total Time Total Time Spent Total Time Spent (In Minutes): 45 minutes Discharge Plan Discharge Items Patient Disposition: Home - Home Health Services Reason For Visit: ABDOMINAL PAIN,URINARY RETENTION Discharge Diagnosis: Sigmoid diverticulitis Chronic constipation Chronic urinary retention/cystocele Baseline dementia Acute renal failure on CKD stage III:- Resolved Condition on Discharge: Fair Activity: Resume your previous activity Exercise/Sports: Wait until after follow-up appointment Non-emergency contact: Primary Care Provider, Deaf Interpreter and Urologist Call non-emergency contact if: you have any medication questions, your symptoms worsen, your pain is concerning for you and you have a fever Follow-up/Referrals: Dhruv Villa DO [Physician] - (Urology follow-up -chronic urinary retention, please call to schedule an appointment) Russ Angel MD [Primary Care Provider] - ( Date & Time 06/14/2021 11:20 AM Provider Russ Angel MD Department [facility] ) Diet: Regular Addtl Attending Provider Instructions: Follow-up with your primary care physician in 1 week Follow up with your Urologist for chronic urinary retention, please call to schedule an appointment Consider getting a colonoscopy as outpatient for chronic constipation evaluation. Please take all medications as instructed on discharge list below. It is recommended that you follow-up with your primary care physician within 1-2 weeks of hospital discharge to ensure you are still doing well. Please call if you have any questions or problems. You can reach a [facility] hospitalist on duty at [facility] 24 hours a day by calling [phone] TAKE Addtl Repair Service Clerk Provider Instructions: Continue bowel regimen Colace 100 mg twice daily as needed for constipation Miralax 1 capful daily as needed for constipation Drink plenty of fluids Complete antibiotic to complete 10 day course PLEASE TAKE PROBIOTICS ( OVER THE COUNTER ) WHILE TAKING ANTIBIOTICS TO PREVENT DIARRHEA /LOOSE STOOL Pending Studies at Discharge: No Stand-Alone Forms: My [facility], Smoking Cessation Medications and DC Order Prescriptions: New polyethylene glycol 3350 [Miralax] 17 gram Powder In Packet 17 g PO DAILY PRN (Reason: Constipation) Qty: 30 RF: 1 metronidazole 500 mg Tablet 500 mg PO TID 7 Days Qty: 21 RF: 0 ciprofloxacin HCl 500 mg Tablet 500 mg PO BID Qty: 13 RF: 0 docusate sodium [Colace] 100 mg capsule 100 mg PO BID PRN (Reason: constipation) Qty: 60 RF: 1 Continued potassium chloride 10 mEq Capsule, Extended Release 10 meq PO BID RF: 0 hydrochlorothiazide 50 mg Tablet 50 mg PO QAM RF: 0 losartan 100 mg Tablet 100 mg PO QAM RF: 0 metoprolol tartrate 25 mg Tablet 25 mg PO BID RF: 0 Discharge Orders: Discharge Order (Routine); Ordered 06/09/21 Ordered By: Isauro Patton Admission Data Admit Date/Time: 06/06/21 12:07 Attending Provider: Isauro Patton Admit Provider: Kenya Byrnes Primary Care Provider: Russ Angel Other Providers: Jaya Diaz [facility] ; Kenya Byrnes ; Ivon Carlisle ; Talia Delacruz ; Dannie Manjarrez ; Aziza Avalos ; Michael Yu ; Ninfa Morley ; Omid Spears ; Jay Wells ; Abad Steel ; Luz Rodney ; Tamara Fregoso ; Hannah Pickard ; Cristóbal Moreno Other Interventions: Discharge Summary Assessment (RN) Last Done: 06/09/21 14:28
== END 2021-06-09 15:00 | disposition home health service (06) | DRG 392 ==
LOC: ED 08:16 → 2W 12:07 → SUATTDRO 12:07 → 2W 15:03